=== PATIENT | male | born 1965 | race Caucasian/White ===

== ENCOUNTER 2017-06-08 13:06 | Inpatient (IN) | payer SELFPAY ==
[2017-06-08] MEDS ORDERED: HYDROcodone/Acetaminophen 7.5/325 mg Tablet PO PRN (13:33)
[2017-06-08] MEDS ORDERED: Ondansetron HCl/PF 4 MG/2 ML Vial IVP PRN (13:33)
[2017-06-08] MEDS ORDERED: Albuterol Sulfate 2.5 mg/3 ml Neb NEB PRN (13:42)
[2017-06-08 13:46] VITALS: BMI 22.6
[2017-06-08 14:10] LABS: Hematocrit-ABG 10.2 % (42.0-52.0)
[2017-06-08 14:28] LABS: Actual Bicarbonate (HCO3a) 22.1 mEq/L (22-26); Base Excess (BEa) -1.9 mEq/L (0 (+/-) 2.5); CO2 Tension 34.5 mmHg (35.0-45.0); O2 Tension (PaO2) 69.3 mmHg (80.0-100.0); pH, Arterial 7.42 (7.35-7.45)
[2017-06-08 14:29] LABS: Calcium, Ionized 1.1 mmol/L (1.12-1.30); Hematocrit-ABG 37.7 % (42.0-52.0)
[2017-06-08 14:30] LABS: ALV-art Gradient 144.255 (0-20); Puncture Site RRA
--- NOTE | 2017-06-08 14:38 | HP ---
DATE OF ADMISSION: 06/08/2017 CHIEF COMPLAINT: Shortness of breath. 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 Until 2 weeks ago, he noticed a sudden onset of chest pain in his left chest while he was lifting a heavy drum. During that time, he was noticed that his brother who was diagnosed with strep throat with coughing and he happened to peralta ve some similar symptoms at that time. He did not have any fevers, but he did complain of some weakn ess at that time associated with some cough. So after waiting for 2 weeks for this chronic chest emilia n, patient developed fever and worsening cough with productive sputum. So he went to a nearby ER in [place] where he was initially checked for white count being 23,000. So he was sent home with ora l antibiotics. Patient had returned back and a chest x-ray was done at that time that was today and it showed no evidence of worsening infiltrates from the previous day and associated with air fluid le viki in the left lung suggestive of hydropneumothorax. So at that time, the patient was decided to be transferred to a higher level of care and they called [facility]. The ER physician did s peak to the textile bag sewer, Dr. Brambila, who agreed the patient would need a higher level of care and pos sibly with a chest tube. Patient was seen in the IMCU. He was alert and oriented. He was saturatin g on nasal cannula on 94% on 4 liters. He did note ate. He does complain of chest pain which is 7 o ut of 10 on intensity at this time after pain medication. The pain is located in the left lower ches t around the rib margin and is aggravated more on deep breathing and coughing. The patient had a pre vious history of pneumonia in his right lung. At that time, it was suspicious for tuberculosis, so katherine villanueva had biopsy of the lymph node on the right lung. Patient was also diagnosed with ascending aortic a neurysm in 2014 and it was 4.5 cm at that time, but he never followed up with his primary doctor evita santos that. Otherwise, the patient does complain of having a history of COPD that was diagnosed by h jaswant primary care physician. He is a known smoker and smokes almost one to one and half pack a day. PAST MEDICAL HISTORY: 1. History of COPD. 2. History of ascending aortic aneurysm. PAST SURGICAL HISTORY: The patient had resection of the hilar lymph node in the right lung for suspi cion for tuberculosis, which was negative at that time. FAMILY HISTORY: The patient has significant family history of lung cancer of mother, father, and bro thers, all with lung cancer. SOCIAL HISTORY: The patient is a known smoker, smokes 1 to 1-1/2 pack a day. No history of alcohol, no history of illicit drug use. 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 REVIEW OF SYSTEMS: All 12 systems are reviewed with the patient thoroughly and found to be negative at this time. Systems reviewed are HEENT, CVS, WASTEWATER PROJECT MANAGER, respiratory, GI, , musculoskeletal, skin integ umentary, psychiatric. The following complete review of systems was negative, unless otherwise menti oned in the HPI or below: Constitutional: Weight loss or gain, sense of well-being, ability to conduct usual activities, exerc ise tolerance. Skin/Breast: Rash, itching, changes in hair growth or loss, nail changes, breast lumps, tenderness, swelling, nipple discharge. Eyes: Vision, double vision, tearing, blind spots, pain. ENT/Mouth: Headaches (location, time of onset, duration, precipitating factors), vertigo, lightheade dness, injury. Vision, double vision, tearing, blind spots, pain, nose bleeding, colds, obstruction, discharge, dental difficulties, gingival bleeding, dentures, neck stiffness, pain, tenderness, masses in thyroid or other areas Cardiovascular: Precordial pain, substernal distress, palpitations, syncope, dyspnea on exertion, or thopnea, nocturnal paroxysmal dyspnea, edema, cyanosis, hypertension, heart murmurs, varicosities, ph lebitis, claudication. Respiratory: Pain, shortness of breath, wheezing, stridor, cough, hemoptysis, fever or night sweats Gastrointestinal: Poor appetite, dysphagia, indigestion, abdominal pain, heartburn, eructation, naus ea, vomiting, hematemesis, jaundice, constipation, or diarrhea, abnormal stools (gaby-colored, tarry, bloody, greasy, foul smelling), flatulence, hemorrhoids, recent changes in bowel habits. Genitourinary: Urgency, frequency, dysuria, nocturia, hematuria, polyuria, oliguria, unusual (or lyndsay nge in) color of urine, stones, hesitancy, change in size of stream, dribbling, acute retention or in continence, libido, potency. Musculoskeletal: Pain, swelling, redness or heat of muscles or joints, limitation, of motion, muscul ar weakness, atrophy, cramps. Neurologic/Psychiatric: Convulsions, paralyses, tremor, incoordination, paraesthesias, difficulties with memory of speech, sensory or motor disturbances, or muscular coordination (ataxia, tremor), emot ional problems, anxiety, depression, previous psychiatric care, unusual perceptions, hallucinations. Allergy/Immunologic: Skin rash, anemia, bleeding tendency, polydipsia, polyuria, intolerance to heat or cold. All systems are reviewed and found to be negative except the ones described in HPI. HOME MEDICATIONS: None. ALLERGIES: None. PHYSICAL EXAMINATION: VITAL SIGNS: Blood pressure is 100/60, pulse is 96, respirations 20, saturations 94% on 4 liters. GENERAL: The patient is moderately built and moderately nourished. He does not appears to be in acu te distress at this time. He is alert and oriented. He was seen sitting in the bed at 45 degrees in clination. HEENT: Atraumatic and normocephalic. PERRLA. Extraocular muscles were intact. Oral mucosa is pink and moist. CARDIOVASCULAR: S1, S2 normal. No murmurs, no rubs or gallops. LUNGS: Bilateral air entry was reduced with reduced air entry to the left lung and complete dullness was noted in the lower left lung. Signs of acute respiratory distress were also noted with accessor y muscle use of respiration. ABDOMEN: Soft, nontender, no guarding, no rebound tenderness. Bowel sounds normal. MUSCULOSKELETAL: No calf tenderness. No pedal edema. No joint tenderness, no joint swelling. SKIN: No cyanosis, no erythema, no rash, no pallor. CENTRAL NERVOUS SYSTEM: Cranial nerve examination II-XII intact. No focal deficits were noted. NECK: No thyromegaly. No lymphadenopathy was noted. PSYCHIATRIC: No signs of suicidal ideation. No signs of mitra. LABORATORY DATA: Labs done today; sodium is 129, potassium is 4.7, chloride is 96, bicarbonate is 20 , anion gap is 18, blood sugar is 112, BUN 13, creatinine 0.8, alkaline phosphatase 407, AST was 71, and ALT was 38. IMAGING DATA: Chest x-ray has been read by radiologist at [facility] showing evidence of left luis armando g hydropneumothorax involving 30% of the lung. I have not had a chance to review the x-ray. ASSESSMENT AND PLAN: 1. Severe sepsis. 2. Acute hypoxic respiratory failure. 3. Acute left lung hydropneumothorax involving 30% of the lung. 4. Acute hyponatremia. 5. Thrombocytosis. PLAN: 1. Plan is to start the patient on broad spectrum IV antibiotics at this time with cefepime and levo floxacin. The patient has his brother being diagnosed with strep infection. Most likely the patient could have had a strep throat. We will get blood cultures and also get Streptococcal pneumonia urin e antigen and also Rapid Strep screening. This would streamline antibiotics. 2. Patient has worsening shortness of breath likely from left lung hydropneumothorax. Pulmonary has been consulted. Dr. Brambila would be following with this and possibly patient would be getting chest t ube drainage and would send parapneumonic effusion for culture. We will closely monitor the patient along with Dr. Brambila and we will follow his recommendations. 3. The patient will be continued on high flow oxygen at this time to keep the saturations more than 97%. We will get an ABG to get a basic level of his blood gases. As the patient has a known history of COPD, we will closely monitor for any worsening COPD exacerbation. We will continue the patient on DuoNebs and albuterol nebs as needed. 4. The patient has elevated thrombocytes. Most likely this could be acute phase reactant signs, but patient has a strong family history of lung cancer and this need to be screened. We will closely fo llow up with further imaging as per Pulmonology. 5. The patient has a history of ascending aortic aneurysm with 4.5 cm diameter last imaged in 2014. When patient gets more stable, we will do a CTA to look for the diameter and we will consult Vascula r at that point. 6. We will also get a 2D echo as the patient was complaining of chest pains to rule out any evidence of congestive heart failure or any wall motion abnormality. 7. This patient has hyponatremia likely from sepsis. We will closely monitor. We will continue the patient on 100 mL of normal saline at this time. 8. Deep venous thrombosis prophylaxis. At this time, we will keep him on SCDs until after the patie nt gets chest tube. After this, the patient will be started on Lovenox 40 mg subcu daily for DVT pro phylaxis. I spent 70 minutes on this patient. On this one hour is critical care time. My critical care time w ould be from 01:15 to 01:45.
[2017-06-08 14:44] LABS: Fluid, Triglycerides 43 mg/dL (Not Available); Pleural Fluid, Amylase Less than 30 U/L (Not Available); Pleural Fluid, Glucose Less than 20 mg/dL; Pleural Fluid, LDH 3753 U/L (Not Available); Pleural Fluid, Protein 4.2 g/dL
[2017-06-08 14:50] LABS: Hemoglobin 10.8 g/dL (14.0-18.0); Mean Corpuscular HGB CONC 35.6 g/dL (32.0-36.0); Mean Corpuscular Hemoglobin 36.3 pg (27.0-31.0); Mean Platelet Volume 5.5 fL (7.4-10.4); Platelet Count 1056 thou/uL (130-400); RBC Distribution Width 12.8 % (11.5-14.5); Red Blood Cell (RBC) Count 2.98 mill/uL (4.70-6.10); White Blood Cell (WBC) Count 36.3 thou/uL (4.8-10.8)
[2017-06-08 14:52] LABS: Body Fluid Source THORACENTESIS FLD
[2017-06-08 14:53] LABS: BF Color Yellow; Clarity Cloudy/Turbid (Clear); RBC Background Count 0.005; RBC Count-Automated 104000 /cumm; Tube # EDTA; WBC/NonHematic-Auto 55700 /cumm
[2017-06-08] MEDS: Clindamycin/D5W 600 MG in Premix Bag 1 BAG IVPB SCH (15:05)
[2017-06-08] MEDS: Sodium Chloride 0.9% 1,000 ML IV SCH (15:05)
[2017-06-08] MEDS: HYDROcodone/Acetaminophen 10/325 mg Tablet PO PRN ×2 (15:06→20:24)
[2017-06-08 15:09] LABS: Band 49 % (5-11); Large Platelets SLIGHT; Lymphocytes 4 % (21-51); MDiff Complete? YES; Macrocytosis SLIGHT = 6-15 cells (100X) (0-5/hpf); Metamyelocyte 4 % (0-0); Neutrophil 43 % (42-75); PLT Morphology Comment Appears Increased; Polychromasia SLIGHT = 2-3 cells (100X) (0-2/hpf); Reflex for Review?? YES; Target Cells SLIGHT = 2-5 cells (100X) (0-1/hpf)
--- NOTE | 2017-06-08 15:19 | RAD ---
CHEST 1 VIEW PORTABLE: Date: 06/08/17 HISTORY: 51-year-old male with history of empyema and hydropneumothorax. FINDINGS: There is a moderate size pneumothorax, primarily involving the left apex and upper chest, with some a ir fluid levels in the left base. There is some pleural and parenchymal disease in the left mid lung zone and left lower lobe, evidence for pneumonia. The right lung is clear. Evidence for small hiatal hernia. IMPRESSION: Moderate left-sided pneumothorax with some pleural fluid. Persistent parenchymal disease in the left mid lung zone and left lower lobe. Stable appearing right chest. POS: [facility]
--- NOTE | 2017-06-08 15:23 | CT ---
CHEST CT SCAN WITHOUT IV CONTRAST: Date: 06/08/17 HISTORY: 51-year-old male with history of hydropneumothorax post thoracentesis. FINDINGS: There is a moderate size left-sided pneumothorax, primarily superiorly, with some pleural fluid, incl uding some minimally loculated pleural fluid in the left lung base. Small right-sided pleural effusio n and minimal posterior pleural based parenchymal changes in the right lower lobe. There is some mini mal loculated pleural fluid in the anterior and medial chest. There is evidence for confluent pneumon ia in the lingula and left upper lobe. There is also parenchymal disease in the left lower lobe with what appears to be an associated cavity, irregularly shaped, measuring approximately 2.5 x 3.5 cm. Mo derate pericardial effusion up to 0.7 cm in thickness anteriorly. IMPRESSION: Moderate left pneumothorax with some fluid in the dependent portion of the lower chest. Consolidated parenchymal change in the lingula and portions of the left upper lobe. Confluent parenchymal process in the left lower lobe with an irregular cavity. Evidence for hiatal hernia. Minimal right pleural ef fusion and pleural based parenchymal changes. Small pericardial effusion. Other findings as above. POS: [facility]
[2017-06-08 15:38] LABS: BF Segmented Neutrophils 93 %; Cell Count Non Hematic 5 %; Eosinophils 2 %
[2017-06-08] MEDS ORDERED: Lidocaine 1% (PF) 30 ML VIAL FS SCH (16:00)
--- NOTE | 2017-06-08 16:23 | OP ---
PROCEDURE: Thoracentesis. INDICATIONS: Right-sided pleural effusion. PROCEDURE IN DETAIL: After informed consent, the patient is sitting upright in bed. The left rigger chief ior thorax was cleaned with chlorhexidine. 1% Xylocaine infiltrated into the intercostal space in th e midscapular area and the pleural cavity was entered, and 20 mL of foul-smelling pus was removed. T hereafter, using an 8-Honduran catheter, a total of 650 mL was removed without difficulty. Effusion is clearly purulent. His pH is 6.8. Reordering a CAT scan film sent out for studies including culture . Additionally, CT surgery is consulted for insertion of a chest tube in appropriate intervention.
[2017-06-08 16:25] LABS: Strep pneumo Urine Ag NEGATIVE (NEGATIVE)
[2017-06-08] MEDS ORDERED: Fentanyl 100 MCG/2 ML VIAL SLOW IVP PRN ×2 (16:58)
--- NOTE | 2017-06-08 17:06 | CON ---
DATE OF CONSULTATION: 06/08/2017 HISTORY OF PRESENT ILLNESS: Mr. Bledsoe is a 51-year-old chronically ill gentleman who presented to the [facility] with approximately 2 weeks of not feeling well, cough, fever, and foul-smelling sputum. He was found to have a hydropneumothorax on the left and was transferred here for further care. Dr. Brambila saw him on admission and did a thoracentesis. He pulled 600 mL of some foul smelling fluid from his left chest. CT scan has been performed, which shows ascending aorta measuring 5 cm in maximum diameter. He has a left hydropneumothorax with loculations along the diaphragm. There is an infiltrate with a centrally located cavity, which is ruptured apparently. I have been asked to see him to place a chest tube in for further recommendations for treatment of his empyema. PAST MEDICAL HISTORY: 1. COPD. 2. History of previous alcohol abuse. 3. Ongoing tobacco abuse. 4. Ascending aortic aneurysm history. PAST SURGICAL HISTORY: Lymph node resection on the right for a history suspicion for tuberculosis, which was negative. SOCIAL HISTORY: He continues to smoke approximately a pack to a pack and a half cigarettes a day. 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 REVIEW OF SYSTEMS: Ten point review of systems is performed and is negative except as above. PHYSICAL EXAMINATION: GENERAL: This is a thin jaundiced gentleman, very short of breath sitting upright in bed. VITAL SIGNS: His temperature is 97.8, pulse is 95 and regular, blood pressures 120/65. LUNGS: Have diminished breath sounds throughout and wheezes. HEART: Rhythm is regular. ABDOMEN: Soft and nontender. EXTREMITIES: No edema. SKIN: Jaundiced. LABORATORY DATA: White blood cell count is 36.3 thousand, platelet count is 1056. Chest x-ray and chest CT have been reviewed. ASSESSMENT AND PLAN: 1. Left empyema. Plan is for a left chest tube. 2. Ascending aneurysm is at 5 cm, is inconsequential in this current situation. 3. Jaundice - with ETOH history, he may have cirrhosis. WIll initiate w/u MTDD
[2017-06-08] MEDS: Cefepime 2 GM, Syringe 2.5 ML in Sterile Water 10 ML SLOW IVP SCH (17:14)
--- NOTE | 2017-06-08 17:36 | RAD ---
CHEST ONE VIEW 06/08/17 HISTORY: Chest tube placement. COMPARISON: Radiograph same day. FINDINGS: New thoracostomy tube in the left chest with size decrease in pneumothorax. Layering left effusion. R ight lung relatively clear. IMPRESSION: Satisfactory placement of thoracostomy tube with minimal pneumothorax remaining. POS: [facility]
[2017-06-08] MEDS: Docusate 100 MG CAP PO SCH (20:24)
[2017-06-08] MEDS: Famotidine/PF 20 mg/2ml Vial SLOW IVP SCH (20:25)
[2017-06-08] MEDS ORDERED: Cefepime 2 GM in Sodium Chloride 0.9% 100 ML IVPB SCH (21:00)
[2017-06-08] MEDS ORDERED: FLU VACC QS2017-18 36 mo. & older 0.5 ML SYRINGE IM ONE (21:00)
--- NOTE | 2017-06-08 21:22 | OP ---
DATE OF PROCEDURE: 06/08/2017 PREOPERATIVE DIAGNOSIS: Left empyema. POSTOPERATIVE DIAGNOSIS: Left empyema. PROCEDURE: Left chest tube placement. SURGEON: Isaias Monet M.D. ANESTHESIA: General, 1% lidocaine with epinephrine for local. PROCEDURE IN DETAIL: After consent was obtained, the left chest wall was prepped and draped in usual sterile fashion. Skin, subcutaneous tissue, and pericostal tissue was anesthetized with 1% lidocain e with epinephrine. Skin incision was made and sharp dissection used to enter the chest. Finger swe ep was performed and some adhesions were taken down bluntly. There was extremely foul-smelling gas a nd fluid that emanated from the wound. A 32 Turkmen chest tube was passed posteriorly and secured to the skin with silk suture. Chest tube was placed to suction. Sterile dressings were applied. Follo w up chest x-ray shows good position of the chest tube.
[2017-06-09] MEDS: HYDROcodone/Acetaminophen 10/325 mg Tablet PO PRN ×3 (00:30→13:38)
[2017-06-09] MEDS: Clindamycin/D5W 600 MG in Premix Bag 1 BAG IVPB SCH ×4 (00:31→23:55)
[2017-06-09] MEDS: Sodium Chloride 0.9% 1,000 ML IV SCH ×3 (00:31→18:04)
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
[2017-06-09 05:07] LABS: Mean Corpuscular HGB CONC 32.7 g/dL (32.0-36.0); Mean Corpuscular Hemoglobin 33.3 pg (27.0-31.0); Mean Platelet Volume 5.3 fL (7.4-10.4); Platelet Count 1049 thou/uL (130-400); RBC Distribution Width 12.9 % (11.5-14.5); Red Blood Cell (RBC) Count 3.02 mill/uL (4.70-6.10); White Blood Cell (WBC) Count 34.2 thou/uL (4.8-10.8)
[2017-06-09 05:15] LABS: Anion Gap 12 mmol/L (10-20); BUN (Urea Nitrogen) 13 mg/dL (8.9-20.6); Calc. Creatinine Clearance 115 mL/min (70-130); Calcium 8.4 mg/dL (7.8-10.44); Carbon Dioxide 25 mmol/L (22-29); Chloride 93 mmol/L (98-107); Estimated GFR-MDRD Greater than 90; Glucose 182 mg/dL (70-105); Potassium 4.4 mmol/L (3.5-5.1); Sodium 126 mmol/L (136-145)
[2017-06-09] MEDS: Cefepime 2 GM, Syringe 2.5 ML in Sterile Water 10 ML SLOW IVP SCH ×2 (05:20→17:56)
[2017-06-09 05:27] LABS: Band 31 % (5-11); Lymphocytes 8 % (21-51); MDiff Complete? YES; Macrocytosis SLIGHT = 6-15 cells (100X) (0-5/hpf); Metamyelocyte 3 % (0-0); Monocytes 7 % (0-10); Neutrophil 51 % (42-75); PLT Morphology Comment Appears Increased
[2017-06-09] MEDS: Aspirin 325 MG TAB PO SCH (07:59)
[2017-06-09] MEDS: Docusate 100 MG CAP PO SCH ×2 (07:59→20:56)
[2017-06-09] MEDS: Multivit, Therapeutic 1 TAB PO SCH (07:59)
[2017-06-09] MEDS: Famotidine/PF 20 mg/2ml Vial SLOW IVP SCH ×2 (08:11→20:56)
--- NOTE | 2017-06-09 10:31 | RAD ---
CHEST 1 VIEW: Date: 06/09/17 HISTORY: 51-year-old male with difficulty breathing. Chest tube placement. COMPARISON: 06/08/17. FINDINGS: There is a left chest tube again noted in place with some subcutaneous emphysema. No significant pneu mothorax. Stable appearing pleural and parenchymal opacity changes in the left mid and lower lung zon e. No significant acute process in the right lung. There are some mild increased markings in the righ t base. IMPRESSION: No significant residual left-sided pneumothorax. Stable appearing pleural and parenchymal opacity lyndsay nges in the left mid chest. Evidence for hiatal hernia. Mild increased markings in the right base, po ssibly mild subsegmental atelectasis. No acute process. POS: [facility]
[2017-06-09 10:52] LABS: INR-International Normal Ratio 1.3; PTT 37.3 SEC (22.9-36.1); Prothrombin Time 16.5 SEC (12.0-14.7)
--- NOTE | 2017-06-09 11:01 | PDOC.PN ---
- Subjective Encounter Start Date: 06/09/17 Encounter Start Time: 10:59 Patient seen and examined, chest tube in place, states he feels ok minus the pain in his chest, no other issues. All questions answered. - Objective Resuscitation Status: Resuscitation Status FULL:Full Resuscitation Vital Signs & Weight: Vital Signs (12 hours) Temp Pulse Resp BP Pulse Ox 06/09/17 08:00 97.6 F 91 28 H 94 L 06/09/17 07:31 69 28 H 96 06/09/17 07:13 96.3 F L 84 20 117/74 93 L 06/09/17 03:31 97.8 F 83 22 H 101/69 99 06/08/17 23:39 98.7 F 85 28 H 128/69 100 Weight Weight 136 lb 8 oz I&O: 06/08/17 06/09/17 06/10/17 06:59 06:59 06:59 Intake Total 2680 Output Total 1460 100 Balance 1220 -100 Result Diagrams: 06/09/17 04:42 06/09/17 04:42 Phys Exam - Physical Examination Constitutional: NAD HEENT: PERRLA, oral pharynx no lesions Neck: no nodes, no JVD Respiratory: no wheezing, no rales +Chest tube Cardiovascular: RRR, no significant murmur Gastrointestinal: soft, non-tender Musculoskeletal: no edema, pulses present Neurological: non-focal, normal sensation Lymphatic: no nodes Psychiatric: normal affect, A&O x 3 Skin: no rash, normal turgor Dx/Plan (1) Chest tube in place Code(s): Z97.8 - PRESENCE OF OTHER SPECIFIED DEVICES Status: Acute (2) Smoker Code(s): F17.200 - NICOTINE DEPENDENCE, UNSPECIFIED, UNCOMPLICATED Status: Acute (3) Tobacco abuse Code(s): Z72.0 - TOBACCO USE Status: Acute (4) HTN (hypertension) Code(s): I10 - ESSENTIAL (PRIMARY) HYPERTENSION Status: Acute (5) Hyponatremia Code(s): E87.1 - HYPO-OSMOLALITY AND HYPONATREMIA Status: Acute - Plan * echo pending * fluid restrict for now * chronic history of smoking for 40+ yrs more than 1pack per day, keep chest tube in place * repeat BMP in AM, no lung mass seen on cxr concerning for malignancy * BP stable * pain control * case and plan d/w patient at length, he understands and agrees with this plan
[2017-06-09 11:14] LABS: ALT (SGPT) 46 U/L (8-55); AST (SGOT) 23 U/L (5-34); Albumin 2.7 g/dL (3.5-5.0); Alkaline Phosphatase 255 U/L (40-150); Bilirubin, Direct 0.4 mg/dL (0.1-0.3); Bilirubin, Total 0.6 mg/dL (0.2-1.2); Protein, Total 5.8 g/dL (6.0-8.3)
[2017-06-09] MEDS ORDERED: Cyclobenzaprine 10 MG TAB PO PRN (11:41)
[2017-06-09] MEDS ORDERED: ALPRAZolam 0.25 MG TAB PO PRN (11:43)
--- NOTE | 2017-06-09 14:09 | PRG ---
DATE OF SERVICE: 06/09/2017 SUBJECTIVE: Ladi this morning is complaining of some muscle spasm. PHYSICAL EXAMINATION: VITAL SIGNS: Blood pressure 119/73, sats are 95% on 2 liters, respirations 18, and temperature 98. CHEST: Reveals decreased breath sounds, crackles and rhonchi, left lung. CARDIAC: Sinus tachycardia. ABDOMEN: Soft, no masses. LABORATORY DATA: White count 43806, H and H 10 and 30, platelet count is 104, 51 segs, 31 bands. IN R 1.3. Liver function pending. Sodium 126. IMPRESSION: 1. Empyema, left chest with necrotizing pneumonia. 2. Tobacco abuse. 3. Alcohol abuse. PLAN: Awaiting results of the liver function. Flexeril and Xanax is being initiated. Going for decortication tomorrow. We will follow. One-half hour critical care time.
[2017-06-10 04:23] LABS: Hemoglobin 9.3 g/dL (14.0-18.0); Mean Corpuscular HGB CONC 32.5 g/dL (32.0-36.0); Mean Corpuscular Hemoglobin 32.8 pg (27.0-31.0); Mean Platelet Volume 5.3 fL (7.4-10.4); Platelet Count 1070 thou/uL (130-400); RBC Distribution Width 12.9 % (11.5-14.5); Red Blood Cell (RBC) Count 2.82 mill/uL (4.70-6.10); White Blood Cell (WBC) Count 35.7 thou/uL (4.8-10.8)
[2017-06-10 04:26] LABS: Anion Gap 13 mmol/L (10-20); BUN (Urea Nitrogen) 11 mg/dL (8.9-20.6); Calc. Creatinine Clearance 117 mL/min (70-130); Calcium 8.4 mg/dL (7.8-10.44); Carbon Dioxide 24 mmol/L (22-29); Chloride 97 mmol/L (98-107); Estimated GFR-MDRD Greater than 90; Glucose 162 mg/dL (70-105); Potassium 4.4 mmol/L (3.5-5.1); Sodium 130 mmol/L (136-145)
[2017-06-10 04:35] LABS: Band 36 % (5-11); Lymphocytes 2 % (21-51); MDiff Complete? YES; Monocytes 1 % (0-10); Neutrophil 61 % (42-75); PLT Morphology Comment Appears Increased
[2017-06-10] MEDS: Cefepime 2 GM, Syringe 2.5 ML in Sterile Water 10 ML SLOW IVP SCH ×2 (05:00→16:23)
[2017-06-10] MEDS: Sodium Chloride 0.9% 1,000 ML IV SCH ×2 (05:00→16:24)
[2017-06-10] MEDS: Aspirin 325 MG TAB PO SCH (07:49)
[2017-06-10] MEDS: Multivit, Therapeutic 1 TAB PO SCH (07:49)
[2017-06-10] MEDS: Docusate 100 MG CAP PO SCH ×2 (07:49→20:04)
[2017-06-10] MEDS: Clindamycin/D5W 600 MG in Premix Bag 1 BAG IVPB SCH ×3 (07:54→23:34)
[2017-06-10] MEDS: Famotidine/PF 20 mg/2ml Vial SLOW IVP SCH ×2 (07:56→20:04)
--- NOTE | 2017-06-10 08:22 | RAD ---
CHEST 1 VIEW: HISTORY: Dyspnea. COMPARISON: 06/09/17. FINDINGS: Cardiac silhouette remains magnified by projection and partially obscured by dense left basilar infil trate that is similar in appearance from previous exam. Pulmonary vasculature is upper limits of nor mal. Mediastinum is midline. Left thoracostomy tube remains in place without significant residual p neumothorax. Old right rib fractures are evident. Left chest wall gas is stable. IMPRESSION: Stable posttraumatic appearance of the chest. POS: [facility]
[2017-06-10] MEDS ORDERED: Midazolam HCl 2 mg/2 ml Vial ONE (08:51)
[2017-06-10] MEDS ORDERED: Fentanyl 100 MCG/2 ML VIAL ONE (08:51)
[2017-06-10] MEDS ORDERED: Phenylephrine 10 MG/NS 250 ML 250 ML ONE (08:55)
[2017-06-10] MEDS ORDERED: Bupivacaine/Epinephrine 0.25% 30 ML VIAL ONE (09:03)
--- NOTE | 2017-06-10 10:10 | PRG ---
DATE OF SERVICE: 06/10/2017 SUBJECTIVE: Mr. Golden is awake, alert, and responsive. He is going for decortication. Denies any p ain or discomfort. PHYSICAL EXAMINATION: VITAL SIGNS: 92% sats on 2 liters, temperature 97, blood pressure 130/80. CHEST: Decreased breath sounds. Left lung is unremarkable. CARDIAC: Normal S1, S2, no gallops. ABDOMEN: Soft, no masses. LABORATORY DATA: White count 35,000. Sodium 130. Electrolytes are normal. Liver function is unrem arkable. Albumin is low at 2.7. IMPRESSION: 1. Left-sided empyema probably pneumothorax. 2. Poor dental hygiene. 3. Alcohol abuse. 4. Poor nutritional status. 5. Marked leukocytosis. 6. Necrotizing pneumonia. PLAN: Continue antibiotics as prescribed, clindamycin, Maxipime and steroids. He is going for decor tication. Prolonged antibiotics. We will follow.
--- NOTE | 2017-06-10 11:02 | OP ---
DATE OF PROCEDURE: 06/10/2017 PREOPERATIVE DIAGNOSIS: Left empyema. POSTOPERATIVE DIAGNOSIS: Left empyema. PROCEDURES PERFORMED: 1. Left subclavian 7 Pakistani central line placement. 2. Left thoracotomy with total pulmonary decortication. SURGEON: Isaias Monet M.D. ANESTHESIA: General endotracheal. ESTIMATED BLOOD LOSS: Less than 50 Ml. DRAINS: 32-Pakistani chest tubes x2. FINDINGS: Foul smelling loculated fluid throughout the lower portion of the chest with an area of pu lmonary rupture. PROCEDURE IN DETAIL: After consent was obtained, the patient was brought to operating room and place d in the supine position on the operating room table. Appropriate anesthetic monitor was placed and general endotracheal anesthesia induced. Flexible fiberoptic bronchoscopy was used to confirm endotr acheal tube placement. Left chest wall was prepped and draped in usual sterile fashion. Left subcla vian central line was then placed. The ports were flushed. The line was secured with silk suture an d sterile dressing applied. The patient was placed in right lateral decubitus position. Joints were appropriately padded. SCDs were used. Left chest wall was prepped and draped in usual sterile fash ion. Posterolateral thoracotomy incision was made. Dissection down to the pericostal tissues obtain ed with electrocautery. The fifth interspace was entered. Ribs were spread. Chest was inspected an d there was a large amount of loculated fluid inferiorly and posteriorly in the chest. This was all evacuated. The lung was freed from the chest wall. The parietal and visceral pleura were decorticat ed freeing the lung completely from the diaphragm and parietal pleura. Lung was inflated and filled nicely with minimal pressure. 32-Pakistani chest tubes were placed, one along the diaphragm, one to the apex. These were secured with silk suture. Ribs were reapproximated with #1 Vicryl. Wounds were c opiously irrigated, closed in layers and Dermabond applied to the skin. The patient was awakened, ex tubated, and transferred to the recovery room in stable condition. Needle, sponge, and instrument co unts were all reported correct at the end of the procedure.
[2017-06-10] MEDS ORDERED: SUGAMMADEX SODIUM 500 MG/5 ML VIAL ONE (11:05)
[2017-06-10] MEDS ORDERED: Ondansetron HCl/PF 4 MG/2 ML Vial IVP PRN ×2 (11:26→12:30)
[2017-06-10] MEDS ORDERED: Promethazine HCl 25 MG/ML VIAL IM PRN ×2 (11:26→12:30)
[2017-06-10] MEDS ORDERED: Morphine Sulfate 2 MG/ML SYRINGE SLOW IVP PRN (11:26)
[2017-06-10] MEDS ORDERED: HYDROmorphone 2 MG/ML VIAL SLOW IVP PRN (11:26)
[2017-06-10] MEDS ORDERED: Meperidine HCl/PF 25 MG/ML VIAL SLOW IVP PRN (11:26)
[2017-06-10] MEDS ORDERED: Promethazine HCl 25 MG/ML VIAL SLOW IVP PRN (11:26)
--- NOTE | 2017-06-10 12:24 | RAD ---
SINGLE VIEW CHEST: Date: 06/10/17 COMPARISON: 06/10/17. HISTORY: Status post left thoracotomy. FINDINGS: Single view of the chest shows enlarged but stable cardiomediastinal silhouette. There are left-sided chest tubes. There is persistent opacity in the mid portion of the left thorax. There may be a small pneumothorax adjacent to the superior chest tube. There is a left subclavian central venous catheter curled back on itself with tip in left subclavian region. There may be a small right pleural effusio n. Air is seen in the left chest wall. IMPRESSION: 1. Malpositioned central venous catheter. 2. Persistent opacity in the left thorax. This may represent a mass or infiltrate. POS: [facility]
[2017-06-10] MEDS ORDERED: Ketorolac Tromethamine 30 MG/ML VIAL IVP PRN (12:30)
[2017-06-10] MEDS ORDERED: traMADol HCl 50 MG TAB PO PRN ×2 (12:30)
[2017-06-10] MEDS ORDERED: diphenhydrAMINE 25 MG CAP PO PRN (12:30)
[2017-06-10] MEDS ORDERED: diphenhydrAMINE 50 MG/ML VIAL IM PRN (12:30)
[2017-06-10] MEDS ORDERED: HYDROcodone/Acetaminophen 5/325 mg Tablet PO PRN ×2 (12:30)
[2017-06-10] MEDS ORDERED: Naloxone HCl 0.4 mg/ml Vial IVP PRN (12:30)
[2017-06-10] MEDS ORDERED: Bupivacaine 0.25% 10 ML VIAL EPIDURAL PRN (12:30)
[2017-06-10] MEDS ORDERED: Eucerin (Mineral Oil/Petrolatum,White) 30 gm Jar TOP PRN (12:30)
[2017-06-10] MEDS ORDERED: diphenhydrAMINE 50 MG/ML VIAL IVP PRN (12:30)
[2017-06-10] MEDS ORDERED: Naloxone HCl 0.4 mg/ml Vial IV PRN (12:30)
[2017-06-10] MEDS ORDERED: Promethazine HCl 25 MG SUPP PR PRN (12:30)
[2017-06-10] MEDS ORDERED: Lidocaine 1% PF 5 ML VIAL ONE (14:05)
[2017-06-10] MEDS ORDERED: Glycopyrrolate 0.2 MG/ML 5 ML SYRINGE ONE (14:05)
[2017-06-10] MEDS ORDERED: Propofol 200 MG/20 ML VIAL ONE (14:05)
[2017-06-10] MEDS ORDERED: PHENYLEPHRINE-NS 100 MCG/ML 10 ML SYRINGE ONE (14:05)
[2017-06-10] MEDS ORDERED: Ondansetron HCl/PF 4 MG/2 ML Vial ONE (14:05)
--- NOTE | 2017-06-10 18:22 | PDOC.PN ---
- Subjective Encounter Start Date: 06/10/17 Encounter Start Time: 18:20 Pt seen for followup re: empyema. had decortication earlier today. Denies fevers. cough+. - Objective Resuscitation Status: Resuscitation Status FULL:Full Resuscitation MAR Reviewed: Yes Vital Signs & Weight: Vital Signs (12 hours) Temp Pulse Resp BP Pulse Ox 06/10/17 15:51 88 18 99 06/10/17 15:30 98.0 F 99 20 121/71 93 L 06/10/17 08:00 97.7 F 86 20 95 06/10/17 07:55 92 L 06/10/17 07:53 86 20 92 L 06/10/17 07:14 97.7 F 84 16 136/80 95 Weight Weight 136 lb 8 oz I&O: 06/09/17 06/10/17 06/11/17 06:59 06:59 06:59 Intake Total 2680 1814.5 600 Output Total 1460 920 200 Balance 1220 894.5 400 Result Diagrams: 06/13/17 04:10 06/13/17 04:10 EKG Reviewed by me: Yes (Tele: sinus tachycardia) Phys Exam - Physical Examination Appears frail HEENT: moist MMs strabismus Neck: supple Bibasal crackles S1, S2, tachy, reg Gastrointestinal: soft Neurological: moves all 4 limbs Psychiatric: normal affect Dx/Plan (1) Empyema Code(s): J86.9 - PYOTHORAX WITHOUT FISTULA Status: Acute (2) Thrombocythemia Status: Acute (3) HTN (hypertension) Code(s): I10 - ESSENTIAL (PRIMARY) HYPERTENSION Status: Chronic (4) Tobacco abuse Code(s): Z72.0 - TOBACCO USE Status: Chronic (5) COPD (chronic obstructive pulmonary disease) Status: Chronic - Plan continue antibiotics, out of bed/ambulate, DVT proph w/SCDs * . Continue IV antibiotics as below. s/p decortication and chest tube placement. ? reactive thrombocytosis, monitor platelet counts. Hematology consult if not improving. Review of Systems - Review of Systems Respiratory: Cough, SOB with Excertion Cardiovascular: negative: chest pain, palpitations, orthopnea, paroxysmal nocturnal dyspnea, edema, light headedness - Medications/Allergies Allergies/Adverse Reactions: Allergies Allergy/AdvReac Type Severity Reaction Status Date / Time No Known Drug Allergies Allergy Verified 06/08/17 16:02 Medications: Current Medications Hydrocodone Bitart/Acetaminophen ([place] 5/325) 1 tab PO Q4H PRN PRN Reason: Mild Pain 0-3 Hydrocodone Bitart/Acetaminophen ([place] 5/325) 2 tab PO Q4H PRN PRN Reason: For Moderate Pain 4-6 Albuterol Sulfate (Ventolin) 2.5 mg NEB Q2H PRN PRN Reason: Wheezing Albuterol/Ipratropium (Duoneb) 3 ml NEB [id number] [facility] Last Admin: 06/10/17 15:51 Dose: 3 ml Alprazolam (Xanax) 0.25 mg PO TIDPRN PRN PRN Reason: Anxiety Aspirin (Aspirin) 325 mg PO DAILY [facility] Last Admin: 06/10/17 07:49 Dose: Not Given Bupivacaine HCl (Marcaine) 5 ml EPIDURAL ONE PRN PRN Reason: UNCONTROLLED PAIN Stop: 06/11/17 12:31 Cyclobenzaprine HCl (Flexeril) 10 mg PO TID PRN PRN Reason: Muscle Spasm Last Admin: 06/09/17 12:05 Dose: 10 mg Diphenhydramine HCl (Benadryl) 25 mg PO Q3H PRN PRN Reason: Itching Diphenhydramine HCl (Benadryl) 25 mg IM Q3H PRN PRN Reason: Itching Diphenhydramine HCl (Benadryl) 25 mg IVP Q3H PRN PRN Reason: Itching Docusate Sodium (Colace) 100 mg PO BID [facility] Last Admin: 06/10/17 07:49 Dose: Not Given Famotidine (Pepcid) 20 mg SLOW IVP Q12HR [facility] Last Admin: 06/10/17 07:56 Dose: 20 mg Sodium Chloride (Normal Saline 0.9%) 1,000 mls @ 100 mls/hr IV .Q10H [facility] Last Admin: 06/10/17 16:24 Dose: 1,000 mls Clindamycin Phosphate/Dextrose (600 mg/ Device) 50 mls @ 100 mls/hr IVPB 0800, 1600,2359 [facility] Last Admin: 06/10/17 16:23 Dose: 50 mls Cefepime HCl 2 gm/ Syringe 2.5 (ml/ Sterile Water) 12.5 mls @ 150 mls/hr SLOW IVP 0500,1700 [facility] Last Admin: 06/10/17 16:23 Dose: 12.5 mls Thiamine HCl 200 mg/ Sodium (Chloride) 52 mls @ 100 mls/hr IVPB 1200,2359 [facility] Stop: 06/12/17 00:31 Last Admin: 06/10/17 13:35 Dose: 52 mls Fentanyl Citrate 250 ml/ (Device) 250 mls @ 0 mls/hr EPIDURAL INF [facility] Ketorolac Tromethamine (Toradol) 30 mg IVP Q6H PRN PRN Reason: Moderate Pain (4-6) Stop: 06/13/17 12:31 Methylprednisolone Sodium Succinate (Solu-Medrol) 40 mg IVP BID [facility] Last Admin: 06/10/17 07:56 Dose: 40 mg Mineral Oil/White Petrolatum (Eucerin Cream) 0 gm TOP PRN PRN PRN Reason: Itching Multivitamins (Theragran) 1 tab PO DAILY [facility] Last Admin: 06/10/17 07:49 Dose: Not Given Naloxone HCl (Narcan) 0.2 mg IV Q5MIN PRN PRN Reason: RR <=8 OR OBTUNDED/UNAROUSABLE Naloxone HCl (Narcan) 0.1 mg IVP Q15MIN PRN PRN Reason: URINARY RETENTION Ondansetron HCl (Zofran) 4 mg IVP Q6H PRN PRN Reason: Nausea/Vomiting Ondansetron HCl (Zofran) 4 mg IVP Q6H PRN PRN Reason: Nausea/Vomiting Promethazine HCl (Phenergan) 12.5 mg IM Q4H PRN PRN Reason: Nausea Promethazine HCl (Phenergan Suppository) 25 mg ME Q4H PRN PRN Reason: Nausea/Vomiting Tramadol HCl (Ultram) 50 mg PO Q6H PRN PRN Reason: Mild Pain 1-3 Tramadol HCl (Ultram) 100 mg PO Q6H PRN PRN Reason: Moderate Pain 4-6 Zolpidem Tartrate (Ambien) 5 mg PO HSPRN PRN PRN Reason: Insomnia
[2017-06-10] MEDS: Zolpidem Tartrate 5 MG TAB PO PRN (21:20)
[2017-06-11] MEDS: Sodium Chloride 0.9% 1,000 ML IV SCH ×2 (02:00→15:01)
[2017-06-11] MEDS: Cefepime 2 GM, Syringe 2.5 ML in Sterile Water 10 ML SLOW IVP SCH ×2 (05:00→17:38)
[2017-06-11 05:57] LABS: Anion Gap 11 mmol/L (10-20); BUN (Urea Nitrogen) 11 mg/dL (8.9-20.6); Calc. Creatinine Clearance 124 mL/min (70-130); Calcium 7.7 mg/dL (7.8-10.44); Carbon Dioxide 25 mmol/L (22-29); Chloride 99 mmol/L (98-107); Estimated GFR-MDRD Greater than 90; Glucose 123 mg/dL (70-105); Potassium 4.6 mmol/L (3.5-5.1); Sodium 130 mmol/L (136-145)
[2017-06-11 06:10] LABS: Acanthocytes SLIGHT = 1-5 cells (100X) (None Seen); Anisocytosis SLIGHT = 6-15 cells (100X) (0-5/hpf); Band 6 % (5-11); Hemoglobin 9.2 g/dL (14.0-18.0); Lymphocytes 8 % (21-51); MDiff Complete? YES; Macrocytosis SLIGHT = 6-15 cells (100X) (0-5/hpf); Mean Corpuscular HGB CONC 33.2 g/dL (32.0-36.0); Mean Corpuscular Hemoglobin 33.5 pg (27.0-31.0); Mean Platelet Volume 5.5 fL (7.4-10.4); Monocytes 5 % (0-10); Neutrophil 81 % (42-75); PLT Morphology Comment Appears Increased; Platelet Count 1010 thou/uL (130-400); RBC Distribution Width 13.2 % (11.5-14.5); Red Blood Cell (RBC) Count 2.74 mill/uL (4.70-6.10); Small Platelets MARKED; White Blood Cell (WBC) Count 23.4 thou/uL (4.8-10.8)
[2017-06-11] MEDS: Clindamycin/D5W 600 MG in Premix Bag 1 BAG IVPB SCH ×2 (09:24→17:33)
[2017-06-11] MEDS: Docusate 100 MG CAP PO SCH ×2 (09:25→21:14)
[2017-06-11] MEDS: Aspirin 325 MG TAB PO SCH (09:25)
[2017-06-11] MEDS: Famotidine/PF 20 mg/2ml Vial SLOW IVP SCH ×2 (09:26→21:15)
[2017-06-11] MEDS: Multivit, Therapeutic 1 TAB PO SCH (09:26)
--- NOTE | 2017-06-11 09:34 | RAD ---
CHEST ONE VIEW: History: Chest pain. Intubated. Follow up. Comparison: 06-10-17 FINDINGS: Cardiac silhouette is magnified by projection. Pulmonary vasculature remains enlarged with patchy are as of parenchymal opacity, similar in appearance to the prior study. Small amount of right pleural fl uid remains. Left thoracostomy tubes are unchanged in position. Left subclavian central venous cathet er remains coiled over the central aspect of the left brachiocephalic vein. Left chest wall gas is si milar in appearance to the prior study. Old right rib fractures are apparent. IMPRESSION: Bilateral airspace disease, right pleural fluid, and other findings are stable. POS: [facility]
--- NOTE | 2017-06-11 12:01 | PRG ---
DATE OF SERVICE: 06/11/2017 This morning he is better, less shortness of breath, less cough. He underwent decortication yesterday. X-ray looks much improved, though still appears to have some n ecrotizing pneumonia. Events noted as per Dr. Monet. All cultures so far are negative. It is more than likely this is an anaerobic infection, probably St reptococcus. It seems sensitive to pretty much all the antibiotics. PHYSICAL EXAMINATION: VITAL SIGNS: Blood pressure 107/70, sats are 92, temperature 97. CHEST: Chest revealed rhonchi and crackles bilaterally. CARDIAC: Normal S1, S2. LABORATORY DATA: White count 22,000, H&H 9 and 26, platelet count is normal. Sodium 130. IMPRESSION: 1. Extensive necrotizing pneumonia with associated probable pneumothorax. 2. Severe deconditioning. 3. Poor dental hygiene. PLAN: Continue supportive care. He can be transferred to the surgical floor. . I will follow.
--- NOTE | 2017-06-11 13:11 | PDOC.PN ---
- Subjective Encounter Start Date: 06/11/17 Encounter Start Time: 10:20 Pt seen for followup re: empyema. Feels better, slept on and off. - Objective Resuscitation Status: Resuscitation Status FULL:Full Resuscitation Vital Signs & Weight: Vital Signs (12 hours) Temp Pulse Resp BP BP Pulse Ox 06/11/17 12:00 97.6 F 95 20 136/77 92 L 06/11/17 11:46 84 16 06/11/17 09:05 72 16 95 06/11/17 08:00 97.2 F L 76 24 H 107/70 92 L 06/11/17 07:58 97.6 F 90 18 98 06/11/17 04:00 97.6 F 90 18 125/69 91 L 06/11/17 01:53 94 L Weight Weight 132 lb 6.4 oz I&O: 06/10/17 06/11/17 06/12/17 06:59 06:59 06:59 Intake Total 1814.5 2014.5 Output Total 920 1470 540 Balance 894.5 544.5 -540 Result Diagrams: 06/11/17 04:50 06/11/17 04:50 Phys Exam - Physical Examination Constitutional: NAD HEENT: moist MMs Neck: supple Jeramie crackles Cardiovascular: RRR Gastrointestinal: soft Neurological: moves all 4 limbs Psychiatric: normal affect Skin: no rash Dx/Plan (1) Empyema Code(s): J86.9 - PYOTHORAX WITHOUT FISTULA Status: Acute (2) Thrombocythemia Status: Acute (3) HTN (hypertension) Code(s): I10 - ESSENTIAL (PRIMARY) HYPERTENSION Status: Chronic (4) Tobacco abuse Code(s): Z72.0 - TOBACCO USE Status: Chronic (5) COPD (chronic obstructive pulmonary disease) Status: Chronic - Plan continue antibiotics, PT/OT, out of bed/ambulate, DVT proph w/SCDs * . Continue IV antibiotics as below. Follow cultures. Ambulate patient. Review of Systems - Review of Systems Constitutional: negative: fever, chills, sweats, weakness, malaise Respiratory: Cough, Sputum. negative: Dry, Shortness of Breath, Hemoptysis, SOB with Excertion, Pleuritic Pain, Wheezing - Medications/Allergies Allergies/Adverse Reactions: Allergies Allergy/AdvReac Type Severity Reaction Status Date / Time No Known Drug Allergies Allergy Verified 06/08/17 16:02 Medications: Current Medications Hydrocodone Bitart/Acetaminophen ([place] 5/325) 1 tab PO Q4H PRN PRN Reason: Mild Pain 0-3 Hydrocodone Bitart/Acetaminophen ([place] 5/325) 2 tab PO Q4H PRN PRN Reason: For Moderate Pain 4-6 Albuterol Sulfate (Ventolin) 2.5 mg NEB Q2H PRN PRN Reason: Wheezing Albuterol/Ipratropium (Duoneb) 3 ml NEB [id number] [facility] Last Admin: 06/11/17 11:46 Dose: 3 ml Alprazolam (Xanax) 0.25 mg PO TIDPRN PRN PRN Reason: Anxiety Amoxicillin/Clavulanate Potassium (Augmentin) 875 mg PO Q12HR [facility] Stop: 06/25/17 21:01 Aspirin (Aspirin) 325 mg PO DAILY [facility] Last Admin: 06/11/17 09:25 Dose: 325 mg Cyclobenzaprine HCl (Flexeril) 10 mg PO TID PRN PRN Reason: Muscle Spasm Last Admin: 06/09/17 12:05 Dose: 10 mg Diphenhydramine HCl (Benadryl) 25 mg PO Q3H PRN PRN Reason: Itching Diphenhydramine HCl (Benadryl) 25 mg IM Q3H PRN PRN Reason: Itching Diphenhydramine HCl (Benadryl) 25 mg IVP Q3H PRN PRN Reason: Itching Docusate Sodium (Colace) 100 mg PO BID [facility] Last Admin: 06/11/17 09:25 Dose: 100 mg Famotidine (Pepcid) 20 mg SLOW IVP Q12HR [facility] Last Admin: 06/11/17 09:26 Dose: 20 mg Sodium Chloride (Normal Saline 0.9%) 1,000 mls @ 100 mls/hr IV .Q10H [facility] Last Admin: 06/11/17 02:00 Dose: 1,000 mls Clindamycin Phosphate/Dextrose (600 mg/ Device) 50 mls @ 100 mls/hr IVPB 0800, 1600,2359 [facility] Last Admin: 06/11/17 09:24 Dose: 50 mls Cefepime HCl 2 gm/ Syringe 2.5 (ml/ Sterile Water) 12.5 mls @ 150 mls/hr SLOW IVP 0500,1700 [facility] Last Admin: 06/11/17 05:00 Dose: 12.5 mls Thiamine HCl 200 mg/ Sodium (Chloride) 52 mls @ 100 mls/hr IVPB 1200,2359 [facility] Stop: 06/12/17 00:31 Last Admin: 06/10/17 23:33 Dose: 52 mls Fentanyl Citrate 250 ml/ (Device) 250 mls @ 0 mls/hr EPIDURAL INF [facility] Ketorolac Tromethamine (Toradol) 30 mg IVP Q6H PRN PRN Reason: Moderate Pain (4-6) Stop: 06/13/17 12:31 Methylprednisolone Sodium Succinate (Solu-Medrol) 40 mg IVP BID [facility] Last Admin: 06/11/17 09:26 Dose: 40 mg Mineral Oil/White Petrolatum (Eucerin Cream) 0 gm TOP PRN PRN PRN Reason: Itching Multivitamins (Theragran) 1 tab PO DAILY [facility] Last Admin: 06/11/17 09:26 Dose: 1 tab Naloxone HCl (Narcan) 0.2 mg IV Q5MIN PRN PRN Reason: RR <=8 OR OBTUNDED/UNAROUSABLE Naloxone HCl (Narcan) 0.1 mg IVP Q15MIN PRN PRN Reason: URINARY RETENTION Ondansetron HCl (Zofran) 4 mg IVP Q6H PRN PRN Reason: Nausea/Vomiting Ondansetron HCl (Zofran) 4 mg IVP Q6H PRN PRN Reason: Nausea/Vomiting Promethazine HCl (Phenergan) 12.5 mg IM Q4H PRN PRN Reason: Nausea Promethazine HCl (Phenergan Suppository) 25 mg NE Q4H PRN PRN Reason: Nausea/Vomiting Tramadol HCl (Ultram) 50 mg PO Q6H PRN PRN Reason: Mild Pain 1-3 Last Admin: 06/10/17 20:03 Dose: 50 mg Tramadol HCl (Ultram) 100 mg PO Q6H PRN PRN Reason: Moderate Pain 4-6 Zolpidem Tartrate (Ambien) 5 mg PO HSPRN PRN PRN Reason: Insomnia Last Admin: 06/10/17 21:20 Dose: 5 mg
[2017-06-11] MEDS: Fentanyl/Bupivacaine 250 ML in Premix Bag 1 BAG EPIDURAL SCH (20:03)
[2017-06-11] MEDS: Amoxicillin/Potassium Clav 875 MG TAB PO SCH (21:14)
[2017-06-11] MEDS: Zolpidem Tartrate 5 MG TAB PO PRN (21:15)
[2017-06-12] MEDS: Clindamycin/D5W 600 MG in Premix Bag 1 BAG IVPB SCH ×3 (00:56→15:47)
[2017-06-12] MEDS: Sodium Chloride 0.9% 1,000 ML IV SCH ×3 (02:55→17:28)
[2017-06-12] MEDS: Cefepime 2 GM, Syringe 2.5 ML in Sterile Water 10 ML SLOW IVP SCH ×2 (06:21→17:42)
[2017-06-12] MEDS: Aspirin 325 MG TAB PO SCH (08:17)
[2017-06-12] MEDS: Multivit, Therapeutic 1 TAB PO SCH (08:17)
[2017-06-12] MEDS: Amoxicillin/Potassium Clav 875 MG TAB PO SCH ×2 (08:17→21:17)
[2017-06-12] MEDS: Famotidine/PF 20 mg/2ml Vial SLOW IVP SCH ×2 (08:17→21:17)
[2017-06-12] MEDS: Docusate 100 MG CAP PO SCH ×3 (08:17→21:17)
--- NOTE | 2017-06-12 11:02 | RAD ---
SINGLE VIEW OF THE CHEST: Comparison: 06-11-17 History: Ventilated patient with respiratory failure. FINDINGS: Single view of the chest shows normal sized cardiomediastinal silhouette. The central venous catheter is still coiled back on itself. Left sided chest tubes are again seen. There are small bilateral ple ural effusions. Multifocal infiltrates are again seen in the left lung, unchanged. Air is seen in the left chest wall. IMPRESSION: Stable exam. POS: [facility]
--- NOTE | 2017-06-12 12:09 | PRG ---
DATE OF SERVICE: 06/12/2017 He is doing better, less shortness of breath, less cough. He remains afebrile. Augmentin, clindamycin and Maxipime on board. PHYSICAL EXAMINATION: VITAL SIGNS: Blood pressure 140/85, sats are 96 on 3 liters, temperature 97. CHEST: Chest reveals decreased breath sounds without any wheezing. CARDIAC: Normal S1, S2. ABDOMEN: Soft, no masses. IMPRESSION: 1. Status post decortication and left probably pneumothorax. 2. Empyema. PLAN: Probably continue Maxipime, clindamycin until the chest tube is removed. X-ray in the morning . I will follow. PT.
--- NOTE | 2017-06-12 16:14 | PDOC.PN ---
- Subjective Encounter Start Date: 06/12/17 Encounter Start Time: 08:00 Pt seen for followup re: empyema. says he feels slightly better. no complaints today. - Objective Resuscitation Status: Resuscitation Status FULL:Full Resuscitation MAR Reviewed: Yes Vital Signs & Weight: Vital Signs (12 hours) Temp Pulse Resp BP Pulse Ox 06/12/17 11:35 97.7 F 71 16 157/88 H 97 06/12/17 10:48 79 16 06/12/17 08:00 97.8 F 82 16 06/12/17 07:30 97.8 F 82 16 148/85 H 96 06/12/17 06:55 75 16 95 Weight Weight 5.298 oz I&O: 06/11/17 06/12/17 06/13/17 06:59 06:59 06:59 Intake Total 2014.5 2350 Output Total 1470 1690 Balance 544.5 660 Result Diagrams: 06/11/17 04:50 06/11/17 04:50 EKG Reviewed by me: Yes Phys Exam - Physical Examination Constitutional: NAD HEENT: moist MMs Neck: supple Jeramie crackles, L chest tube Cardiovascular: RRR Gastrointestinal: soft Neurological: moves all 4 limbs Psychiatric: normal affect Dx/Plan (1) Empyema Code(s): J86.9 - PYOTHORAX WITHOUT FISTULA Status: Acute (2) Thrombocythemia Status: Acute (3) HTN (hypertension) Code(s): I10 - ESSENTIAL (PRIMARY) HYPERTENSION Status: Chronic (4) Tobacco abuse Code(s): Z72.0 - TOBACCO USE Status: Chronic (5) COPD (chronic obstructive pulmonary disease) Status: Chronic - Plan * . Continue antibiotics as below, await cultures. Ambulate patient. Check AM labs. Review of Systems - Review of Systems Constitutional: negative: fever, chills, sweats, weakness, malaise Respiratory: Cough, Sputum. negative: Dry, Shortness of Breath, Hemoptysis, SOB with Excertion, Pleuritic Pain, Wheezing - Medications/Allergies Allergies/Adverse Reactions: Allergies Allergy/AdvReac Type Severity Reaction Status Date / Time No Known Drug Allergies Allergy Verified 06/08/17 16:02 Medications: Current Medications Hydrocodone Bitart/Acetaminophen ([place] 5/325) 1 tab PO Q4H PRN PRN Reason: Mild Pain 0-3 Hydrocodone Bitart/Acetaminophen ([place] 5/325) 2 tab PO Q4H PRN PRN Reason: For Moderate Pain 4-6 Albuterol Sulfate (Ventolin) 2.5 mg NEB Q2H PRN PRN Reason: Wheezing Albuterol/Ipratropium (Duoneb) 3 ml NEB [id number] [facility] Last Admin: 06/12/17 14:09 Dose: 3 ml Alprazolam (Xanax) 0.25 mg PO TIDPRN PRN PRN Reason: Anxiety Amoxicillin/Clavulanate Potassium (Augmentin) 875 mg PO Q12HR [facility] Stop: 06/25/17 21:01 Last Admin: 06/12/17 08:17 Dose: 875 mg Aspirin (Aspirin) 325 mg PO DAILY [facility] Last Admin: 06/12/17 08:17 Dose: 325 mg Cyclobenzaprine HCl (Flexeril) 10 mg PO TID PRN PRN Reason: Muscle Spasm Last Admin: 06/09/17 12:05 Dose: 10 mg Diphenhydramine HCl (Benadryl) 25 mg PO Q3H PRN PRN Reason: Itching Diphenhydramine HCl (Benadryl) 25 mg IM Q3H PRN PRN Reason: Itching Diphenhydramine HCl (Benadryl) 25 mg IVP Q3H PRN PRN Reason: Itching Docusate Sodium (Colace) 100 mg PO BID [facility] Last Admin: 06/12/17 08:19 Dose: 100 mg Famotidine (Pepcid) 20 mg SLOW IVP Q12HR [facility] Last Admin: 06/12/17 08:17 Dose: 20 mg Sodium Chloride (Normal Saline 0.9%) 1,000 mls @ 100 mls/hr IV .Q10H [facility] Last Admin: 06/12/17 08:18 Dose: Not Given Clindamycin Phosphate/Dextrose (600 mg/ Device) 50 mls @ 100 mls/hr IVPB 0800, 1600,2359 [facility] Last Admin: 06/12/17 15:47 Dose: 50 mls Cefepime HCl 2 gm/ Syringe 2.5 (ml/ Sterile Water) 12.5 mls @ 150 mls/hr SLOW IVP 0500,1700 [facility] Last Admin: 06/12/17 06:21 Dose: 12.5 mls Fentanyl Citrate 250 ml/ (Device) 250 mls @ 0 mls/hr EPIDURAL INF [facility] Last Admin: 06/11/17 20:03 Dose: 250 mls Ketorolac Tromethamine (Toradol) 30 mg IVP Q6H PRN PRN Reason: Moderate Pain (4-6) Stop: 06/13/17 12:31 Mineral Oil/White Petrolatum (Eucerin Cream) 0 gm TOP PRN PRN PRN Reason: Itching Multivitamins (Theragran) 1 tab PO DAILY [facility] Last Admin: 06/12/17 08:17 Dose: 1 tab Naloxone HCl (Narcan) 0.2 mg IV Q5MIN PRN PRN Reason: RR <=8 OR OBTUNDED/UNAROUSABLE Naloxone HCl (Narcan) 0.1 mg IVP Q15MIN PRN PRN Reason: URINARY RETENTION Ondansetron HCl (Zofran) 4 mg IVP Q6H PRN PRN Reason: Nausea/Vomiting Ondansetron HCl (Zofran) 4 mg IVP Q6H PRN PRN Reason: Nausea/Vomiting Prednisone (Prednisone) 20 mg PO [facility] Promethazine HCl (Phenergan) 12.5 mg IM Q4H PRN PRN Reason: Nausea Promethazine HCl (Phenergan Suppository) 25 mg HI Q4H PRN PRN Reason: Nausea/Vomiting Tramadol HCl (Ultram) 50 mg PO Q6H PRN PRN Reason: Mild Pain 1-3 Last Admin: 06/10/17 20:03 Dose: 50 mg Tramadol HCl (Ultram) 100 mg PO Q6H PRN PRN Reason: Moderate Pain 4-6 Zolpidem Tartrate (Ambien) 5 mg PO HSPRN PRN PRN Reason: Insomnia Last Admin: 06/11/17 21:15 Dose: 5 mg
[2017-06-12] MEDS: Zolpidem Tartrate 5 MG TAB PO PRN (21:17)
[2017-06-13] MEDS: Clindamycin/D5W 600 MG in Premix Bag 1 BAG IVPB SCH ×3 (00:55→15:38)
[2017-06-13] MEDS: Sodium Chloride 0.9% 1,000 ML IV SCH ×2 (01:03→11:27)
[2017-06-13] MEDS: Fentanyl/Bupivacaine 250 ML in Premix Bag 1 BAG EPIDURAL SCH (03:52)
[2017-06-13] MEDS: Cefepime 2 GM, Syringe 2.5 ML in Sterile Water 10 ML SLOW IVP SCH (05:27)
[2017-06-13 05:31] LABS: #Basophils 0.1 thou/uL (0.0-0.2); #Eosinphils 0.2 thou/uL (0.0-0.7); #Lymphocytes 2.5 thou/uL (1.20-3.40); #Monocytes 1.2 thou/uL (0.11-0.59); #Neutrophils 14.1 thou/uL (1.40-6.50); %Basophils 0.3 % (0.0-1.0); %Eosinophils 1.2 % (0.0-10.0); %Lymphocytes 14.1 % (21.0-51.0); %Monocytes 6.5 % (0.0-10.0); Hemoglobin 9.8 g/dL (14.0-18.0); Mean Corpuscular HGB CONC 32.7 g/dL (32.0-36.0); Mean Platelet Volume 5.4 fL (7.4-10.4); Platelet Count 1078 thou/uL (130-400); RBC Distribution Width 13.5 % (11.5-14.5); Red Blood Cell (RBC) Count 2.96 mill/uL (4.70-6.10)
[2017-06-13 05:42] LABS: Anion Gap 9 mmol/L (10-20); BUN (Urea Nitrogen) 9 mg/dL (8.9-20.6); Calc. Creatinine Clearance 155 mL/min (70-130); Calcium 7.9 mg/dL (7.8-10.44); Carbon Dioxide 29 mmol/L (22-29); Chloride 97 mmol/L (98-107); Estimated GFR-MDRD Greater than 90; Glucose 70 mg/dL (70-105); Potassium 4.3 mmol/L (3.5-5.1); Sodium 131 mmol/L (136-145)
--- NOTE | 2017-06-13 07:46 | RAD ---
CHEST 1 VIEW: Date: 06/13/17 HISTORY: Ventilated patient. COMPARISON: Chest 1 view from prior day. FINDINGS: Thoracostomy tube is in place with tip at the apex. The central venous catheter is coiled upon itself with tip projecting over the left subclavian vein. The apex of the kinking is at the brachiocephalic confluence. Left pneumatocele is similar. Air space opacities in the lungs are similar, as well as small effusion s. There is kinking of the left basilar thoracostomy tube. There is a left lateral apical pleural candy e with the pleural space filled with fluid. IMPRESSION: No significant change in radiographic appearance of the chest. POS: [facility]
[2017-06-13] MEDS: predniSONE 20 MG TAB PO SCH (08:38)
[2017-06-13] MEDS: Famotidine/PF 20 mg/2ml Vial SLOW IVP SCH ×2 (08:38→21:48)
[2017-06-13] MEDS: Docusate 100 MG CAP PO SCH ×2 (08:38→21:48)
[2017-06-13] MEDS: Aspirin 325 MG TAB PO SCH (08:38)
[2017-06-13] MEDS: Amoxicillin/Potassium Clav 875 MG TAB PO SCH ×2 (08:38→21:48)
[2017-06-13] MEDS: Multivit, Therapeutic 1 TAB PO SCH (08:38)
--- NOTE | 2017-06-13 09:43 | PRG ---
DATE OF SERVICE: 06/13/2017 X-ray shows much improvement. There still appears to be some left lower lung cavitary infiltrates. CT is doing much improved. He denies any pain or shortness of breath. PHYSICAL EXAMINATION: VITAL SIGNS: Sats are 92 on room air, temperature 97, blood pressure 96/76. CHEST: Chest revealed decreased breath sounds without any wheezing. CARDIAC: Normal S1-S2. ABDOMEN: Soft. No masses. LABORATORY: White count 18,000, H&H 9 and 28, platelet count is elevated. IMPRESSION: Necrotizing pneumonia with probable pneumothorax. PLAN: Continue present treatment. Hopefully, once the CT is removed he can be discharged home with prolonged antibiotics, a total of at least 3 weeks. I will follow.
--- NOTE | 2017-06-13 13:49 | PDOC.PN ---
- Subjective Encounter Start Date: 06/13/17 Encounter Start Time: 08:00 Pt seen for followup re: pneumonia. Cough+, no sputum. No fevers. - Objective Resuscitation Status: Resuscitation Status FULL:Full Resuscitation Vital Signs & Weight: Vital Signs (12 hours) Temp Pulse Resp BP Pulse Ox 06/13/17 11:45 97.9 F 91 16 120/71 93 L 06/13/17 10:50 80 20 06/13/17 08:00 97.6 F 76 16 92 L 06/13/17 07:40 97.6 F 76 16 136/79 92 L 06/13/17 07:15 97 06/13/17 07:12 73 20 97 06/13/17 04:00 97.6 F 80 18 151/77 H 92 L Weight Weight 154 lb 6.4 oz I&O: 06/12/17 06/13/17 06/14/17 06:59 06:59 06:59 Intake Total 2350 2000 Output Total 1845 2285 Balance 505 -285 Result Diagrams: 06/13/17 04:10 06/13/17 04:10 Phys Exam - Physical Examination Constitutional: NAD HEENT: moist MMs Neck: supple Respiratory: clear to auscultation bilateral chest tube+ Cardiovascular: RRR Gastrointestinal: soft Neurological: moves all 4 limbs Psychiatric: normal affect Dx/Plan (1) Pneumonia Code(s): J18.9 - PNEUMONIA, UNSPECIFIED ORGANISM Status: Acute (2) Empyema Code(s): J86.9 - PYOTHORAX WITHOUT FISTULA Status: Acute (3) Thrombocythemia Status: Acute (4) HTN (hypertension) Code(s): I10 - ESSENTIAL (PRIMARY) HYPERTENSION Status: Chronic (5) Tobacco abuse Code(s): Z72.0 - TOBACCO USE Status: Chronic (6) COPD (chronic obstructive pulmonary disease) Status: Chronic - Plan continue antibiotics, PT/OT, out of bed/ambulate * . Continue antibiotics. Await chest tube removal. Ambulate patient. Review of Systems - Review of Systems Constitutional: negative: fever, chills, sweats, weakness, malaise Respiratory: Cough, Dry Cardiovascular: negative: chest pain, palpitations, light headedness - Medications/Allergies Allergies/Adverse Reactions: Allergies Allergy/AdvReac Type Severity Reaction Status Date / Time No Known Drug Allergies Allergy Verified 06/08/17 16:02 Medications: Current Medications Hydrocodone Bitart/Acetaminophen ([place] 5/325) 1 tab PO Q4H PRN PRN Reason: Mild Pain 0-3 Hydrocodone Bitart/Acetaminophen ([place] 5/325) 2 tab PO Q4H PRN PRN Reason: For Moderate Pain 4-6 Albuterol Sulfate (Ventolin) 2.5 mg NEB Q2H PRN PRN Reason: Wheezing Albuterol/Ipratropium (Duoneb) 3 ml NEB [id number] [facility] Last Admin: 06/13/17 10:50 Dose: 3 ml Alprazolam (Xanax) 0.25 mg PO TIDPRN PRN PRN Reason: Anxiety Amoxicillin/Clavulanate Potassium (Augmentin) 875 mg PO Q12HR [facility] Stop: 06/25/17 21:01 Last Admin: 06/13/17 08:38 Dose: 875 mg Aspirin (Aspirin) 325 mg PO DAILY [facility] Last Admin: 06/13/17 08:38 Dose: 325 mg Cyclobenzaprine HCl (Flexeril) 10 mg PO TID PRN PRN Reason: Muscle Spasm Last Admin: 06/09/17 12:05 Dose: 10 mg Diphenhydramine HCl (Benadryl) 25 mg PO Q3H PRN PRN Reason: Itching Diphenhydramine HCl (Benadryl) 25 mg IM Q3H PRN PRN Reason: Itching Diphenhydramine HCl (Benadryl) 25 mg IVP Q3H PRN PRN Reason: Itching Docusate Sodium (Colace) 100 mg PO BID [facility] Last Admin: 06/13/17 08:38 Dose: 100 mg Famotidine (Pepcid) 20 mg SLOW IVP Q12HR [facility] Last Admin: 06/13/17 08:38 Dose: 20 mg Sodium Chloride (Normal Saline 0.9%) 1,000 mls @ 100 mls/hr IV .Q10H [facility] Last Admin: 06/13/17 11:27 Dose: 1,000 mls Clindamycin Phosphate/Dextrose (600 mg/ Device) 50 mls @ 100 mls/hr IVPB 0800, 1600,2359 [facility] Last Admin: 06/13/17 08:38 Dose: 50 mls Fentanyl Citrate 250 ml/ (Device) 250 mls @ 0 mls/hr EPIDURAL INF [facility] Last Admin: 06/13/17 03:52 Dose: 250 mls Mineral Oil/White Petrolatum (Eucerin Cream) 0 gm TOP PRN PRN PRN Reason: Itching Multivitamins (Theragran) 1 tab PO DAILY [facility] Last Admin: 06/13/17 08:38 Dose: 1 tab Naloxone HCl (Narcan) 0.2 mg IV Q5MIN PRN PRN Reason: RR <=8 OR OBTUNDED/UNAROUSABLE Naloxone HCl (Narcan) 0.1 mg IVP Q15MIN PRN PRN Reason: URINARY RETENTION Ondansetron HCl (Zofran) 4 mg IVP Q6H PRN PRN Reason: Nausea/Vomiting Ondansetron HCl (Zofran) 4 mg IVP Q6H PRN PRN Reason: Nausea/Vomiting Prednisone (Prednisone) 20 mg PO QA[facility] Last Admin: 06/13/17 08:38 Dose: 20 mg Promethazine HCl (Phenergan) 12.5 mg IM Q4H PRN PRN Reason: Nausea Promethazine HCl (Phenergan Suppository) 25 mg ND Q4H PRN PRN Reason: Nausea/Vomiting Tramadol HCl (Ultram) 50 mg PO Q6H PRN PRN Reason: Mild Pain 1-3 Last Admin: 06/10/17 20:03 Dose: 50 mg Tramadol HCl (Ultram) 100 mg PO Q6H PRN PRN Reason: Moderate Pain 4-6 Zolpidem Tartrate (Ambien) 5 mg PO HSPRN PRN PRN Reason: Insomnia Last Admin: 06/12/17 21:17 Dose: 5 mg
[2017-06-13] MEDS: Zolpidem Tartrate 5 MG TAB PO PRN (21:48)
[2017-06-14] MEDS: Sodium Chloride 0.9% 1,000 ML IV SCH (00:08)
[2017-06-14] MEDS: Clindamycin/D5W 600 MG in Premix Bag 1 BAG IVPB SCH ×2 (00:09→07:48)
[2017-06-14] MEDS ORDERED: Sodium Chloride 0.9% 1,000 ML IV SCH (05:45)
[2017-06-14 05:55] LABS: Anion Gap 13 mmol/L (10-20); BUN (Urea Nitrogen) 7 mg/dL (8.9-20.6); Calc. Creatinine Clearance 158 mL/min (70-130); Calcium 8.3 mg/dL (7.8-10.44); Carbon Dioxide 29 mmol/L (22-29); Chloride 94 mmol/L (98-107); Estimated GFR-MDRD Greater than 90; Glucose 75 mg/dL (70-105); Sodium 132 mmol/L (136-145)
[2017-06-14 06:11] LABS: Band 1 % (5-11); Hemoglobin 10.7 g/dL (14.0-18.0); Lymphocytes 8 % (21-51); MDiff Complete? YES; Mean Corpuscular Hemoglobin 34.9 pg (27.0-31.0); Mean Corpuscular Volume 99.9 fl (80.0-94.0); Mean Platelet Volume 5.4 fL (7.4-10.4); Monocytes 2 % (0-10); Myelocyte 1 % (0-0); Neutrophil 88 % (42-75); PLT Morphology Comment Appears Increased; Platelet Count 1058 thou/uL (130-400); RBC Distribution Width 13.4 % (11.5-14.5); Red Blood Cell (RBC) Count 3.08 mill/uL (4.70-6.10); White Blood Cell (WBC) Count 22.2 thou/uL (4.8-10.8)
[2017-06-14] MEDS: Amoxicillin/Potassium Clav 875 MG TAB PO SCH (07:52)
[2017-06-14] MEDS: predniSONE 20 MG TAB PO SCH (07:52)
[2017-06-14] MEDS: Famotidine/PF 20 mg/2ml Vial SLOW IVP SCH (07:53)
[2017-06-14] MEDS: Docusate 100 MG CAP PO SCH (07:53)
[2017-06-14] MEDS: Aspirin 325 MG TAB PO SCH (07:53)
[2017-06-14] MEDS: Multivit, Therapeutic 1 TAB PO SCH (07:53)
--- NOTE | 2017-06-14 08:00 | RAD ---
CHEST 1 VIEW: Date: 06/14/17 HISTORY: Chest pain. Chest tubes. Follow-up. COMPARISON: 06/13/17. FINDINGS: Cardiac silhouette is magnified by projection. Left thoracostomy tubes are unchanged in position. Par enchymal scarring and atelectasis throughout the left lung is stable. Infiltrate within the right luis armando g has improved. Bilateral pleural fluid remains. No significant pneumothorax. Left subclavian central venous catheter remains coiled over the left brachiocephalic vein. Old right rib fractures are apparent. IMPRESSION: Slight improved aeration of the right lung. Findings are otherwise stable. POS: [facility]
--- NOTE | 2017-06-14 11:05 | DIS ---
DATE OF ADMISSION: 06/08/2017 DATE OF DISCHARGE: 06/14/2017 PRIMARY CARE PHYSICIAN: None. DISCHARGE DIAGNOSES: 1. Left-sided empyema. 2. Hyponatremia, improving. 3. Abnormal liver function. 4. Thrombocythemia. PROCEDURES DURING THIS HOSPITALIZATION: 1. On 06/08/2017, patient had thoracentesis. 2. On 06/10/2017, patient had left subclavian central line placement as well as left thoracotomy wit h total pulmonary decortication along with placement of chest tube drains. 3. Removal of chest tube drains on 06/14/2017. CONDITION OF PATIENT ON THE DAY OF DISCHARGE: Stable. I assess Mr. Bledsoe on the day of discharge. He denies any chest pain. He denies any shortness of breath. He has cough that is nonproductive. V ital signs are stable. S1 and S2 are heard, regular. Lungs are clear to auscultation bilaterally. DISCHARGE MEDICATIONS: Prednisone 20 mg daily for 5 days, then 10 mg daily for 5 days, tramadol 50 m g every 6 hours as needed, multivitamins 1 tablet daily, and Augmentin 875 mg 2 times a day for 2 wee ks. CONSULTATIONS DURING THIS HOSPITALIZATION: Pulmonology, Dr. Brambila and Cardiovascular Surgery, Dr. Viktoriya Monet. HOSPITAL COURSE: Mr. Bledsoe is a pleasant 51-year-old gentleman who was admitted to [facility] on 06/08/2017 for left-sided empyema. He was started on broad spectrum antibiotics. He was seen by pulmonology service and underwent thoracentesis, which yielded purulent fluid. He w as subsequently seen by Cardiovascular Surgery and underwent left-sided thoracotomy. At the time of this dictation, all cultures are negative. His chest tube drains were removed on 06/14/2017. He had hyponatremia with sodium of 126 on 06/09/2017. It improved to 132 on the day of discharge. Sheyla villanueva also had thrombocythemia, with a platelet count greater than 1000 during this hospitalization. He will need further workup for this if it is not improving. He has been advised to follow up through h is primary care provider's office for the same. He also had abnormal liver function test during this hospitalization. He will need further workup through his primary care provider's office for that as well. On the day of discharge, he has a white count of 22,200, hemoglobin 10.7, platelet count 1058. Sodiu m 132, potassium 4.0, and creatinine 0.56. Many thanks for allowing me to participate in your patient's care. Please feel free to contact me wi th any questions or concerns. DISCHARGE DESTINATION: Home. TOTAL AMOUNT OF TIME SPENT COORDINATING THIS DISCHARGE: 33 minutes.
--- NOTE | 2017-06-14 15:06 | PRG ---
DATE OF SERVICE: 06/14/2017 SUBJECTIVE: This morning, he is awake, alert, and responsive. He is ready to go home. OBJECTIVE: VITAL SIGNS: He is afebrile, blood pressure 120/60, sat 94% on room air, respiration 16, pulse 85. CHEST: Decreased breath sounds, no wheezing. CARDIAC: Normal S1 and S2. No gallops. ABDOMEN: Soft, no masses. LABORATORY DATA: White count today is elevated at 20,000, hemoglobin and hematocrit 10 and 30, plate let count is normal. Electrolytes are normal. Sodium 132. IMPRESSION: Status post left pneumothorax, necrotizing pneumonia, probably anaerobic, status post de cortication, status post thoracentesis. PLAN: The patient is much improved. He will be discharged home today on Augmentin for 3 weeks. Follow up in the office in 2 weeks. He is to refrain from smoking and drinking. Follow up with his primary care physician.
[2017-06-14 15:27] VITALS: BP 149/79; TEMP 97.9
== END 2017-06-14 16:45 | disposition home or self-care (01) | DRG 853 ==
LOC: IMCU/EMU 13:06 → SURG A 06-11 12:45
PROVIDERS: ADMIT Specialist; ATTEND Emergency Medicine
PROC: 0W9B30Z Drainage of Left Pleural Cavity with Drainage Device, Percutaneous Approach (ICD-10-PCS; 2017-06-08)
PROC: 0W993ZX Drainage of Right Pleural Cavity, Percutaneous Approach, Diagnostic (ICD-10-PCS; 2017-06-08)
PROC: 0BCL0ZZ Extirpation of Matter from Left Lung, Open Approach (ICD-10-PCS; principal; 2017-06-10)
PROC: 3E0T3BZ Introduction of Anesthetic Agent into Peripheral Nerves and Plexi, Percutaneous Approach (ICD-10-PCS; 2017-06-10)
PROC: 05H633Z Insertion of Infusion Device into Left Subclavian Vein, Percutaneous Approach (ICD-10-PCS; 2017-06-10)
DX: A41.9 Sepsis, unspecified organism (principal); J96.01 Acute respiratory failure with hypoxia; J86.9 Pyothorax without fistula; J85.0 Gangrene and necrosis of lung; J94.2 Hemothorax; J18.9 Pneumonia, unspecified organism; E87.1 Hypo-osmolality and hyponatremia; R65.20 Severe sepsis without septic shock; I71.4 Abdominal aortic aneurysm, without rupture; J44.9 Chronic obstructive pulmonary disease, unspecified; F17.210 Nicotine dependence, cigarettes, uncomplicated; F10.10 Alcohol abuse, uncomplicated; I10 Essential (primary) hypertension; D47.3 Essential (hemorrhagic) thrombocythemia
CPT/HCPCS: 32554; 36415; 71045; 71250; 80048; 80076; 82150; 82805; 82945; 83615; 83986; 84157; 84478; 85007; 85025; 85027; 85060; 85610; 85730; 86850; 86900; 86901; 87070; 87081; 87116; 87205; 87206; 87430; 87899; 88112; 88305; 89051; 93306; 94640; A4216; J0692; J2001; J2250; J2405; J2704; J2920; J3010; J3411; J3490; J7050; J7506; J7620; S0028

== ENCOUNTER 2017-06-15 15:30 | Inpatient (IN) | payer SELFPAY ==
[2017-06-15] MEDS ORDERED: Furosemide 40 MG/4 ML VIAL ONE (16:24)
[2017-06-15] MEDS ORDERED: Morphine 4 MG/ML Carpuject ONE (17:49)
[2017-06-15] MEDS ORDERED: Ondansetron ODT 4 MG TAB SL PRN (18:50)
[2017-06-15] MEDS ORDERED: Ondansetron HCl/PF 4 MG/2 ML Vial IVP PRN (18:50)
[2017-06-15] MEDS ORDERED: HYDROcodone/Acetaminophen 5/325 mg Tablet PO PRN (18:57)
[2017-06-15 19:48] VITALS: BMI 20.9
[2017-06-15 19:53] LABS: Hemoglobin 10.7 g/dL (14.0-18.0); Mean Corpuscular Hemoglobin 31.5 pg (27.0-31.0); Mean Corpuscular Volume 98.6 fl (80.0-94.0); Mean Platelet Volume 5.4 fL (7.4-10.4); Platelet Count 1117 thou/uL (130-400); RBC Distribution Width 13.9 % (11.5-14.5); White Blood Cell (WBC) Count 24.2 thou/uL (4.8-10.8)
[2017-06-15] MEDS ORDERED: traMADol HCl 50 MG TAB PO PRN (20:01)
[2017-06-15] MEDS ORDERED: Acetaminophen 325 MG TAB PO PRN (20:01)
[2017-06-15] MEDS ORDERED: Senokot 8.6 MG TAB PO PRN (20:01)
[2017-06-15] MEDS: HYDROcodone/Acetaminophen 5/325 mg Tablet PO PRN (20:01)
[2017-06-15] MEDS ORDERED: Guaifenesin DM 100-10/5 ML UDCUP PO PRN (20:01)
[2017-06-15 20:15] LABS: Anisocytosis SLIGHT = 6-15 cells (100X) (0-5/hpf); Band 5 % (5-11); Hypochromia SLIGHT = 6-15 cells (100X) (0-5/hpf); Lymphocytes 6 % (21-51); MDiff Complete? YES; Monocytes 2 % (0-10); Neutrophil 87 % (42-75); PLT Morphology Comment Appears Increased
[2017-06-15] MEDS: Nicotine 21 MG PATCH TOP SCH (20:57)
[2017-06-15] MEDS: Famotidine 20 MG TAB PO SCH (20:57)
[2017-06-15] MEDS: Cefepime 1 GM, Admixture Fee 1 EACH in Sterile Water 10 ML SLOW IVP SCH (20:58)
[2017-06-15] MEDS ORDERED: Amoxicillin/Potassium Clav 500 MG TAB PO SCH (21:00)
[2017-06-15] MEDS ORDERED: Cefepime 1 GM in Sodium Chloride 0.9% 100 ML IVPB SCH (21:00)
--- NOTE | 2017-06-15 21:58 | CON ---
DATE OF CONSULTATION: 06/15/2017 HISTORY OF PRESENT ILLNESS: This is a 51-year-old gentleman recently admitted with H. flu pneumonia complicated by hydropneumothorax and empyema. He underwent a thoracotomy last week by Dr. Monet on t he left with drainage of his empyema. He was noted at that time to have probable abscess in his lung . He was discharged yesterday and to return today complaining of pain and dyspnea. He did not fill his pain medications after discharge and he admits to smoking 3 cigarettes yesterday after arriving h ome. He presented to the [place] [facility] where CT scan was done showing a small hydropneumo thorax with subcutaneous air similar to the chest x-ray done prior to tube removal 2 days ago. His w jameel count is basically the same at about 24,000 and he has had no fever. PAST MEDICAL HISTORY: Includes COPD, history of alcoholism and a new diagnosis of an enlarged ascend ing aorta. PAST SURGICAL HISTORY: Includes lymph node biopsy. 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 PHYSICAL EXAMINATION: GENERAL: He is an alert, cooperative gentleman, in no distress. NECK: No adenopathy. CHEST: He has palpable subcutaneous emphysema along the left anterior chest. He has a dressing in t he left lower chest and a wound in the left posterior chest that is healing nicely with no fluid. LUNGS: Slight expiratory wheezes with good breath sounds bilaterally. ABDOMEN: Soft and nontender. EXTREMITIES: He has significant 2+ edema in both lower extremities with some bullae in his feet and ankle areas. PLAN: At this time, no obvious change in his chest examination and will resume his Augmentin. We wi ll also resume his prednisone. He has been instructed to keep his legs elevated at bed except for ba throom privileges and anticipate the swelling will improve tonight. We will hold off on his Augmenti n at this time due to the possibility that he could have developed these bullae in his legs related t o this drug.
--- NOTE | 2017-06-15 23:21 | HP ---
REASON FOR ADMISSION: Possible recurrence of empyema, lower extremity edema with blistering, mild pneumothorax. HISTORY OF PRESENT ILLNESS: The patient gives history of not getting comfortable at all in any position. He tried to sit, lay down, turn to right and left, and could not get comfortable at all. He states he was in a lot of pain and was short of breath. He was discharged yesterday from the hospital after being hospitalized for left-sided empyema. No fever as such at home. He says his pharmacy closed by the time he reached home after discharge. PAST MEDICAL AND SURGICAL HISTORY: Left chest tube placement for left-sided empyema, there was extremely foul-smelling gas and fluid that emanated from the wound. History of AAA; prior history of hilar lymph node resection on right side for suspicion of TB, which was negative; history of COPD, failure to thrive. PERSONAL HISTORY: The patient states he smokes 1 to 1-1/2 packs daily; in fact , after getting discharge he smoked three cigarettes yesterday. Denies alcohol use or drugs. He lives with brother. FAMILY HISTORY: The patient is not . There are no kids. Mom at the age of 76 years from lung cancer, which had spread to brain and bone. Father of same lung cancer at the age of 72 years. DISCHARGE MEDICATIONS: Augmentin 875 mg p.o. twice daily, [place] p.r.n. for pain , multivitamin 1 tab once daily, prednisone 20 mg daily, and Ultram 50 mg q.6 hours p.r.n. for pain. ALLERGIES: No known drug allergies. REVIEW OF SYSTEMS: The following complete review of systems was negative, unless otherwise mentioned in the HPI or below: Constitutional: Weight loss or gain, ability to conduct usual activities. Skin: Rash, itching. Eyes: Double vision, pain. ENT/Mouth: Nose bleeding, neck stiffness, pain, tenderness. Cardiovascular: Palpitations, dyspnea on exertion, orthopnea. Respiratory: Shortness of breath, wheezing, cough, hemoptysis, fever or night sweats. Gastrointestinal: Poor appetite, abdominal pain, heartburn, nausea, vomiting, constipation, or diarrhea. Genitourinary: Urgency, frequency, dysuria, nocturia. Musculoskeletal: Pain, swelling. Neurologic/Psychiatric: Anxiety, depression. Allergy/Immunologic: Skin rash, bleeding tendency. PHYSICAL EXAMINATION: GENERAL: The patient is a 51-year-old male, who is cachectic and not in any acute distress at present. VITAL SIGNS: Blood pressure 142/86, pulse 90 per minute, respiratory rate 20 per minute, temperature 97.5 degrees Fahrenheit, saturating 96% on room air. NECK: Supple, no elevated JVD. HEENT: Eyes: Extraocular muscles are intact. Pupils are reacting to light. Oral cavity: Mucous membranes are dry. No exudates or congestion. CARDIOVASCULAR SYSTEM: S1, S2 heard. RESPIRATORY SYSTEM: There is scattered rhonchi plus bilateral, wheezes plus 1+ bilateral. ABDOMEN: Soft, no tenderness, rigidity or guarding. EXTREMITIES: There is 2+ peripheral edema with blistering of the skin in both lower extremities. No calf tenderness. VASCULAR SYSTEM: Peripheral pulses 1+ bilateral. No ischemic ulcerations or gangrene. CENTRAL NERVOUS SYSTEM: No gross focal deficits seen. The patient is alert, awake, and oriented well. PSYCHIATRIC: The patient's mood is a bit depressed. Otherwise, no hallucinations or delusions. LABORATORY AND X-RAY FINDINGS: Please note all his labs were done at [facility]. The CBC done here shows a white count of 24, H&H 10 and 33, platelet count is 1117 with 87% neutrophils and 5% bands, MCV is 98. Sodium 127, potassium 4.7 , chloride 89. Serum bicarbonate 26, glucose 92, BUN 6.2, creatinine 0.6, calcium 8.7, total bilirubin 0.7, AST 52, ALT 95, albumin is 2.9. Lactic acid is less than 1.5, CK-MB 15.6, troponin I less than 0.01. BNP was 84. He has had a CT of the chest done, which shows there is cavitation in the left upper lobe peripherally, which communicates with the extrapleural space causing a left -sided loculated pneumothorax. This also appears to be free communication of this loculated pneumothorax with the chest wall soft tissues and the prior chest tube may have been in this location. Area of airspace opacity in the right upper lobe may represent focal infiltrate, small bilateral pleural effusions and adjacent atelectasis were seen. CLINICAL IMPRESSION AND PLAN: The patient will be admitted to medical floor for a possible recurrence of his lung abscess, severe lower extremity edema with blistering. Dr. Casas has evaluated the patient here and has been placed on clindamycin and cefepime. We will continue the same. We will place him on lidocaine patch along with Ultram p.r.n. for pain, he is also on [place]. DuoNebs q.6 hourly, incentive spirometry and continue his prednisone 20 mg daily as before. We will also have daily chest x-rays to see for resolution or worsening of his pneumothorax that's seen on the CAT scan. He will be on Lasix 20 mg IV q.12 hourly for the severe lower extremity edema likely due to hypoalbuminemia. The patient is unkempt and has poor physical hygiene. He might need placement for 2 weeks in view of his deconditioning and current medical issues. Case management consultation will be requested for the same. We will continue to closely monitor him on medical floor. BRYCE
[2017-06-16] MEDS: HYDROcodone/Acetaminophen 5/325 mg Tablet PO PRN ×3 (00:50→09:37)
[2017-06-16] MEDS: Clindamycin/D5W 300 MG/50 ML BAG IVPB SCH ×3 (00:51→14:46)
[2017-06-16] MEDS: Furosemide 40 MG/4 ML VIAL SLOW IVP SCH ×2 (05:17→14:36)
[2017-06-16 05:38] LABS: Anion Gap 12 mmol/L (10-20); BUN (Urea Nitrogen) 10 mg/dL (8.9-20.6); Calc. Creatinine Clearance 113 mL/min (70-130); Carbon Dioxide 27 mmol/L (22-29); Chloride 90 mmol/L (98-107); Estimated GFR-MDRD Greater than 90; Glucose 108 mg/dL (70-105); Potassium 3.3 mmol/L (3.5-5.1); Sodium 126 mmol/L (136-145)
--- NOTE | 2017-06-16 08:30 | RAD ---
SINGLE VIEW OF THE CHEST: COMPARISON: 06/14/17. HISTORY: Empyema. FINDINGS: A single view of the chest shows a normal size cardiomediastinal silhouette. Air is seen along the l eft chest wall. The previously seen chest tubes have been removed. There is a small left apical pne umothorax. A small left pleural effusion is also seen. IMPRESSION: Status post chest tube removal with a small left apical pneumothorax. POS: [facility]
[2017-06-16] MEDS: Cefepime 1 GM, Admixture Fee 1 EACH in Sterile Water 10 ML SLOW IVP SCH (08:45)
[2017-06-16] MEDS: predniSONE 20 MG TAB PO SCH (08:46)
[2017-06-16] MEDS: Famotidine 20 MG TAB PO SCH ×2 (08:47→20:41)
[2017-06-16] MEDS: Multivit, Therapeutic 1 TAB PO SCH (08:48)
[2017-06-16] MEDS: Lidocaine 5% Patch TD SCH (09:00)
[2017-06-16] MEDS ORDERED: FLU VACC QS2017-18 36 mo. & older 0.5 ML SYRINGE IM ONE (09:00)
[2017-06-16] MEDS: Enoxaparin Sodium 40 MG/0.4 ML SYRINGE SC SCH (09:15)
--- NOTE | 2017-06-16 12:26 | PDOC.PN ---
- Subjective Encounter Start Date: 06/16/17 Encounter Start Time: 11:15 Subjective: pain is better, no sob -: has his LE elevated over pillows - Objective Resuscitation Status: Resuscitation Status FULL:Full Resuscitation MAR Reviewed: Yes Vital Signs & Weight: Vital Signs (12 hours) Temp Pulse Resp BP Pulse Ox 06/16/17 11:38 97.8 F 80 20 110/68 95 06/16/17 08:00 97.8 F 86 20 95 06/16/17 07:38 97.8 F 86 20 115/70 95 06/16/17 07:00 93 L 06/16/17 06:57 64 16 93 L 06/16/17 05:00 97.8 F 72 20 101/65 92 L 06/16/17 03:29 94 L 06/16/17 01:51 90 16 93 L 06/16/17 01:00 97.5 F L 83 18 103/62 91 L Weight Weight 126 lb 4 oz Result Diagrams: 06/15/17 19:32 06/16/17 04:33 Phys Exam - Physical Examination HEENT: PERRLA, moist MMs Neck: no JVD, supple Respiratory: no wheezing, no rales Cardiovascular: RRR, no significant murmur Gastrointestinal: soft, no distention, positive bowel sounds Musculoskeletal: pulses present, edema present Neurological: non-focal, moves all 4 limbs Psychiatric: normal affect, A&O x 3 Dx/Plan (1) Pneumonia Code(s): J18.9 - PNEUMONIA, UNSPECIFIED ORGANISM Status: Acute Qualifiers: Pneumonia type: due to unspecified organism (2) Thrombocythemia Status: Chronic (3) COPD (chronic obstructive pulmonary disease) Status: Chronic Qualifiers: COPD type: chronic bronchitis Chronic bronchitis type: unspecified Qualified Code(s): J42 - Unspecified chronic bronchitis (4) HTN (hypertension) Code(s): I10 - ESSENTIAL (PRIMARY) HYPERTENSION Status: Chronic Qualifiers: Hypertension type: essential hypertension Qualified Code(s): I10 - Essential (primary) hypertension (5) Tobacco abuse Code(s): Z72.0 - TOBACCO USE Status: Chronic - Plan pain is better on lidocaine patch, ultram and prn norco -: will place him on scheduled ultram and tylenol -: on cefepime and clindamycin -: cxr this am reviewed -: may switch back to augmentin if ok with * . will need swing bed, medication assistance for discharge plan Review of Systems - Medications/Allergies Allergies/Adverse Reactions: Allergies Allergy/AdvReac Type Severity Reaction Status Date / Time No Known Drug Allergies Allergy Verified 06/08/17 16:02 Medications: Current Medications Acetaminophen (Tylenol) 650 mg PO BID [facility] Albuterol/Ipratropium (Duoneb) 3 ml NEB [id number] [facility] Last Admin: 06/16/17 06:57 Dose: 3 ml Clindamycin Phosphate/Dextrose (Cleocin) 300 mg IVPB Q6HR [facility] Last Admin: 06/16/17 05:15 Dose: 300 mg Enoxaparin Sodium (Lovenox) 40 mg SC 0900 [facility] Last Admin: 06/16/17 09:15 Dose: 40 mg Famotidine (Pepcid) 20 mg PO BID [facility] Last Admin: 06/16/17 08:47 Dose: 20 mg Furosemide (Lasix) 40 mg SLOW IVP 0600,1400 [facility] Last Admin: 06/16/17 05:17 Dose: 40 mg Guaifenesin/Dextromethorphan (Robitussin Dm) 15 ml PO Q4H PRN PRN Reason: Cough Cefepime HCl 1 gm/Miscellaneous Medication 1 each/ Sterile Water 10 mls @ 120 mls/hr SLOW IVP Q12HR [facility] Last Admin: 06/16/17 08:45 Dose: 10 mls Lidocaine (Lidoderm 5% Patch) 1 patch TD DAILY [facility] Last Admin: 06/16/17 09:00 Dose: 1 patch Miscellaneous Medication (Lidocaine Patch Removal) 1 each TOP QPM [facility] Multivitamins (Theragran) 1 tab PO DAILY [facility] Last Admin: 06/16/17 08:48 Dose: 1 tab Nicotine (Nicoderm Patch) 21 mg TOP HS [facility] Last Admin: 06/15/17 20:57 Dose: 21 mg Prednisone (Prednisone) 20 mg PO QAM-WM [facility] Last Admin: 06/16/17 08:46 Dose: 20 mg Senna (Senokot) 2 tab PO HSPRN PRN PRN Reason: Constipation Tramadol HCl (Ultram) 50 mg PO TID [facility]
[2017-06-16] MEDS ORDERED: Potassium Chloride 20 MEQ TAB PO SCH (13:30)
[2017-06-16] MEDS: traMADol HCl 50 MG TAB PO SCH ×2 (14:38→20:18)
[2017-06-16] MEDS: Acetaminophen 325 MG TAB PO SCH (20:17)
[2017-06-16] MEDS: Nicotine 21 MG PATCH TOP SCH (20:17)
[2017-06-16] MEDS: Amoxicillin/Potassium Clav 875 MG TAB PO SCH (20:18)
[2017-06-16] MEDS: Lidocaine Patch Removal TOP SCH (20:38)
--- NOTE | 2017-06-17 00:43 | CON ---
DATE OF CONSULTATION: 06/16/2017 HISTORY OF PRESENT ILLNESS: Mr. Bledsoe is a 51-year-old gentleman who says he got home and had surgical site chest discomfort. Said he could not tolerate the pain. He also was complaining of lower extremity swelling, decided to come back for reevaluation. Says his feet were swollen when he left the hospital. He was discharged on the at in the afternoon and was back in the emergency department in the afternoon the next day. He subsequently was admitted. We were consulted because of a recent hospitalization for parapneumonic effusion with pneumonia. He had a polymicrobial pleural fluid with gram positive cocci in pairs and intracellular gram-variable rods. This would suggest that this may have been an aspiration related to that in my opinion. I reviewed his chest radiograph and believe actually his findings in the left may be slightly improved. He has a tiny apical pneumothorax on the left. I do not see any clear cut evidence for recurrence of an infected pleural space. PAST MEDICAL HISTORY: 1. Remarkable for his recent decortication. 2. History of abdominal aortic aneurysm. 3. History of hilar lymph node resection on the right in the past, worked up for tuberculosis, workup was negative. 4. History of obstructive lung disease. SOCIAL HISTORY: History of a pack and half smoking per day. He started smoking immediately after discharge. He has no history of alcohol or drugs. FAMILY HISTORY: There is no family, both parents of lung cancer. MEDICATIONS: He is on Augmentin, [place], prednisone, and Ultram at discharge. ALLERGIES: No drug allergies. REVIEW OF SYSTEMS: Otherwise negative. He says he feels better. PHYSICAL EXAMINATION: VITAL SIGNS: He is afebrile, heart rate is 80, respiratory rate is 20, oximetry is 94%, and blood pressure 109/69. HEENT: Sclerae is anicteric. Malnourished appearing. He has temporal muscle wasting. NECK: Supple. LUNGS: Remarkable for clear breath sounds. HEART: Regular rhythm. ABDOMEN: Soft and nontender. EXTREMITIES: Without asymmetry. His lower extremities are wrapped on wound care. LABORATORY DATA: White count was 22,000 on the , 24,000 on admission. He has 1,117,000 platelets, 87 segs, 5% bands. IMPRESSION: 1. Recent evacuation of an anaerobic empyema. 2. Pneumonia. 3. Protein calorie malnutrition. 4. Reactive thrombocytosis associated with empyema, which he gradually improved. There is no clear proven benefit treating this with hydroxyurea, although some product safety technical assistant do use the drug in this setting. I do not see anything on his radiograph to suggest a recurrence of an infectious process. He does need to complete his antimicrobial course. He has been given a diuretic and says his feet are already better. I am not sure that anything more than medications given to him at discharge are indicated. I agree with current management. This is a 50-minute consult greater than 50% of the time was spent on the unit coordinating care. BRYCE
[2017-06-17] MEDS: HYDROcodone/Acetaminophen 5/325 mg Tablet PO PRN (05:27)
[2017-06-17] MEDS: Furosemide 40 MG/4 ML VIAL SLOW IVP SCH ×2 (06:00→15:19)
[2017-06-17] MEDS ORDERED: Furosemide 40 MG TAB PO SCH (07:30)
[2017-06-17] MEDS: Enoxaparin Sodium 40 MG/0.4 ML SYRINGE SC SCH (08:23)
[2017-06-17] MEDS: Famotidine 20 MG TAB PO SCH ×2 (08:24→21:22)
[2017-06-17] MEDS: predniSONE 20 MG TAB PO SCH (08:24)
[2017-06-17] MEDS: Acetaminophen 325 MG TAB PO SCH ×2 (08:24→21:21)
[2017-06-17] MEDS: Amoxicillin/Potassium Clav 875 MG TAB PO SCH ×2 (08:25→21:24)
[2017-06-17] MEDS: traMADol HCl 50 MG TAB PO SCH ×3 (08:25→21:22)
[2017-06-17] MEDS: Lidocaine 5% Patch TD SCH (08:25)
[2017-06-17] MEDS: Multivit, Therapeutic 1 TAB PO SCH (08:25)
[2017-06-17 08:34] LABS: Hemoglobin 10.9 g/dL (14.0-18.0); Mean Corpuscular HGB CONC 32.1 g/dL (32.0-36.0); Mean Corpuscular Hemoglobin 32.1 pg (27.0-31.0); Mean Corpuscular Volume 99.9 fl (80.0-94.0); Mean Platelet Volume 5.4 fL (7.4-10.4); Platelet Count 1225 thou/uL (130-400); White Blood Cell (WBC) Count 22.7 thou/uL (4.8-10.8)
[2017-06-17 08:51] LABS: Anion Gap 15 mmol/L (10-20); BUN (Urea Nitrogen) 9 mg/dL (8.9-20.6); Calc. Creatinine Clearance 97 mL/min (70-130); Calcium 8.5 mg/dL (7.8-10.44); Carbon Dioxide 26 mmol/L (22-29); Chloride 91 mmol/L (98-107); Estimated GFR-MDRD Greater than 90; Glucose 85 mg/dL (70-105); Potassium 3.8 mmol/L (3.5-5.1); Sodium 128 mmol/L (136-145)
--- NOTE | 2017-06-17 11:44 | RAD ---
PORTABLE CHEST: HISTORY: Empyema. Followup. COMPARISON: 06/16/17. FINDINGS: Parenchymal opacities in the left mid and lower lung are again noted. Small left peripheral pneumoth orax and left subcutaneous emphysema again noted. Right lung remains clear. IMPRESSION: Left chest findings do not appear significantly changed from yesterday. POS: [facility]
--- NOTE | 2017-06-17 12:05 | PDOC.PN ---
- Subjective Encounter Start Date: 06/17/17 Encounter Start Time: 11:00 Subjective: feels better -: no sob, is amb in room - Objective Resuscitation Status: Resuscitation Status FULL:Full Resuscitation MAR Reviewed: Yes Vital Signs & Weight: Vital Signs (12 hours) Temp Pulse Resp BP Pulse Ox 06/17/17 08:00 97.2 F L 76 18 90 L 06/17/17 07:42 97.2 F L 76 18 114/76 90 L 06/17/17 06:35 87 16 97 06/17/17 02:00 80 16 94 L Weight Admit Weight 126 lb 4 oz Weight 126 lb 4 oz I&O: 06/16/17 06/17/17 06/18/17 06:59 06:59 06:59 Intake Total 180 Balance 180 Result Diagrams: 06/17/17 08:13 06/17/17 08:13 Phys Exam - Physical Examination HEENT: PERRLA, moist MMs Neck: no JVD, supple Respiratory: no wheezing, no rales Cardiovascular: RRR, no significant murmur Gastrointestinal: soft, non-tender, positive bowel sounds Musculoskeletal: no edema, pulses present Neurological: non-focal, moves all 4 limbs Psychiatric: A&O x 3 Dx/Plan (1) Pneumonia Code(s): J18.9 - PNEUMONIA, UNSPECIFIED ORGANISM Status: Suspected Qualifiers: Pneumonia type: due to unspecified organism Comment: old empyema is resolving (2) Thrombocythemia Status: Chronic (3) COPD (chronic obstructive pulmonary disease) Status: Chronic Qualifiers: COPD type: chronic bronchitis Chronic bronchitis type: unspecified Qualified Code(s): J42 - Unspecified chronic bronchitis (4) HTN (hypertension) Code(s): I10 - ESSENTIAL (PRIMARY) HYPERTENSION Status: Chronic Qualifiers: Hypertension type: essential hypertension Qualified Code(s): I10 - Essential (primary) hypertension (5) Tobacco abuse Code(s): Z72.0 - TOBACCO USE Status: Chronic (6) Malnutrition of moderate degree Code(s): E44.0 - MODERATE PROTEIN-CALORIE MALNUTRITION Status: Chronic - Plan is on augmentin -: oral prednisone -: on lidocaine tts, ultram tid and tylenol bid -: dc plan in am -: ensure 1 can tid * . Review of Systems - Medications/Allergies Allergies/Adverse Reactions: Allergies Allergy/AdvReac Type Severity Reaction Status Date / Time No Known Drug Allergies Allergy Verified 06/08/17 16:02 Medications: Current Medications Acetaminophen (Tylenol) 650 mg PO BID [facility] Last Admin: 06/17/17 08:24 Dose: 650 mg Hydrocodone Bitart/Acetaminophen ([place] 5/325) 1 tab PO Q4H PRN PRN Reason: pain >3 Last Admin: 06/17/17 05:27 Dose: 1 tab Albuterol/Ipratropium (Duoneb) 3 ml NEB [id number] [facility] Last Admin: 06/17/17 06:35 Dose: 3 ml Amoxicillin/Clavulanate Potassium (Augmentin) 875 mg PO Q12HR [facility] Last Admin: 06/17/17 08:25 Dose: 875 mg Enoxaparin Sodium (Lovenox) 40 mg SC 0900 [facility] Last Admin: 06/17/17 08:23 Dose: 40 mg Famotidine (Pepcid) 20 mg PO BID [facility] Last Admin: 06/17/17 08:24 Dose: 20 mg Furosemide (Lasix) 40 mg SLOW IVP 0600,1400 [facility] Last Admin: 06/17/17 06:00 Dose: Not Given Guaifenesin/Dextromethorphan (Robitussin Dm) 15 ml PO Q4H PRN PRN Reason: Cough Lidocaine (Lidoderm 5% Patch) 1 patch TD DAILY [facility] Last Admin: 06/17/17 08:25 Dose: 1 patch Miscellaneous Medication (Lidocaine Patch Removal) 1 each TOP QPM [facility] Last Admin: 06/16/17 20:38 Dose: 1 each Multivitamins (Theragran) 1 tab PO DAILY [facility] Last Admin: 06/17/17 08:25 Dose: 1 tab Nicotine (Nicoderm Patch) 21 mg TOP HS [facility] Last Admin: 06/16/17 20:17 Dose: 21 mg Potassium Chloride (Klor-Con) 20 meq PO QAM-WM [facility] Last Admin: 06/17/17 08:25 Dose: 20 meq Prednisone (Prednisone) 20 mg PO QAM-WM [facility] Last Admin: 06/17/17 08:24 Dose: 20 mg Senna (Senokot) 2 tab PO HSPRN PRN PRN Reason: Constipation Tramadol HCl (Ultram) 50 mg PO TID [facility] Last Admin: 06/17/17 08:25 Dose: 50 mg
--- NOTE | 2017-06-17 12:54 | PRG ---
DATE OF SERVICE: 06/17/2017 Mr. Bledsoe was readmitted to the hospital. I asked him exactly what the issue was. He said he started having difficulty breathing. He went back and tried to smoke. PHYSICAL EXAMINATION: VITAL SIGNS: His sats are 90% on room air, pulse is 80, temperature 98. LUNGS: He has got crepitus on the left side with crackles, right lung is unremarkable. CARDIAC: Normal S1, S2. LABORATORY DATA: White count 20,000, H&H 10 and 30, platelet count is elevated. Sodium 128. 2+ ankle edema. IMPRESSION: Necrotizing pneumonia, probably anerobic infection. PLAN: Will discharge home on Augmentin for 2 weeks, prednisone. His diuretics probably can be discontinued. His swelling is more than likely from his . Continue antibiotics, continue nutrition, PT. Hopefully, he can be discharged home in the next several days. Avoid excessive pain medicine. Once again, he is to refrain from smoking and drinking. BRYCE
[2017-06-17] MEDS: Nicotine 21 MG PATCH TOP SCH (21:25)
[2017-06-17] MEDS: Lidocaine Patch Removal TOP SCH (21:26)
[2017-06-18] MEDS: HYDROcodone/Acetaminophen 5/325 mg Tablet PO PRN ×2 (02:09→10:40)
[2017-06-18] MEDS ORDERED: Milk Of Magnesia 30 ML UDCUP PO PRN (02:30)
[2017-06-18 05:05] LABS: Anion Gap 12 mmol/L (10-20); BUN (Urea Nitrogen) 11 mg/dL (8.9-20.6); Calc. Creatinine Clearance 106 mL/min (70-130); Calcium 8.1 mg/dL (7.8-10.44); Carbon Dioxide 29 mmol/L (22-29); Chloride 91 mmol/L (98-107); Estimated GFR-MDRD Greater than 90; Glucose 85 mg/dL (70-105); Potassium 3.4 mmol/L (3.5-5.1); Sodium 129 mmol/L (136-145)
[2017-06-18] MEDS: Furosemide 40 MG/4 ML VIAL SLOW IVP SCH (06:01)
[2017-06-18] MEDS: predniSONE 20 MG TAB PO SCH (08:04)
[2017-06-18] MEDS: Famotidine 20 MG TAB PO SCH (08:04)
[2017-06-18] MEDS: Amoxicillin/Potassium Clav 875 MG TAB PO SCH (08:04)
[2017-06-18] MEDS: Multivit, Therapeutic 1 TAB PO SCH (08:04)
[2017-06-18] MEDS: traMADol HCl 50 MG TAB PO SCH (08:04)
[2017-06-18] MEDS: Acetaminophen 325 MG TAB PO SCH (08:04)
[2017-06-18] MEDS: Enoxaparin Sodium 40 MG/0.4 ML SYRINGE SC SCH (08:06)
[2017-06-18] MEDS: Lidocaine 5% Patch TD SCH (08:07)
--- NOTE | 2017-06-18 10:46 | PRG ---
DATE OF SERVICE: 06/18/2017 This morning he is awake, alert, responsive. Denies any pain or discomfort. PHYSICAL EXAMINATION: VITAL SIGNS: Sats are 91%, 93% on 1 liter, temperature 97, pulse 76, respirations 18. CHEST: No wheezing or crackles. CARDIAC: Normal S1-S2. No gallops. ABDOMEN: Soft, no masses. Sodium 129. IMPRESSION: 1. Left-sided prior pneumothorax status post decortication. 2. Bilateral lung abscesses, probably anaerobic infection. Small pneumothorax. PLAN: He will be discharged home on Augmentin and prednisone a few days ago. He already has a presc ription. Refrain from smoking and drinking. He will be seen in the office in 2 weeks for a chest x- ray.
[2017-06-18 11:52] VITALS: BP 126/82; TEMP 97.3
[2017-06-18] MEDS ORDERED: Prevnar 13-Val Conj/PF 0.5 ML SYRINGE IM ONE (12:45)
--- NOTE | 2017-06-18 13:40 | PDOC.PN ---
- Subjective Encounter Start Date: 06/18/17 Encounter Start Time: 07:00 Subjective: is amb in hallway, feels better -: pain is controlled well on current meds - Objective Resuscitation Status: Resuscitation Status FULL:Full Resuscitation MAR Reviewed: Yes Vital Signs & Weight: Vital Signs (12 hours) Temp Pulse Resp BP BP Pulse Ox 06/18/17 11:00 97.3 F L 69 16 126/82 94 L 06/18/17 08:17 97.6 F 76 18 93 L 06/18/17 07:40 76 18 96 06/18/17 07:31 97.6 F 80 16 107/91 H 93 L 06/18/17 04:00 98.0 F 66 20 148/48 H 98 Weight Admit Weight 126 lb 4 oz Weight 126 lb 4 oz I&O: 06/17/17 06/18/17 06/19/17 06:59 06:59 06:59 Intake Total 600 Balance 600 Result Diagrams: 06/17/17 08:13 06/18/17 04:05 Phys Exam - Physical Examination HEENT: PERRLA, moist MMs Neck: no JVD, supple Respiratory: no wheezing, no rales Cardiovascular: RRR, no significant murmur Gastrointestinal: soft, non-tender, positive bowel sounds Musculoskeletal: no edema, pulses present Neurological: non-focal, moves all 4 limbs Psychiatric: normal affect, A&O x 3 Dx/Plan (1) Pneumonia Code(s): J18.9 - PNEUMONIA, UNSPECIFIED ORGANISM Status: Suspected Qualifiers: Pneumonia type: due to unspecified organism Comment: old empyema is resolving (2) Thrombocythemia Status: Chronic (3) COPD (chronic obstructive pulmonary disease) Status: Chronic Qualifiers: COPD type: chronic bronchitis Chronic bronchitis type: unspecified Qualified Code(s): J42 - Unspecified chronic bronchitis (4) HTN (hypertension) Code(s): I10 - ESSENTIAL (PRIMARY) HYPERTENSION Status: Chronic Qualifiers: Hypertension type: essential hypertension Qualified Code(s): I10 - Essential (primary) hypertension (5) Tobacco abuse Code(s): Z72.0 - TOBACCO USE Status: Chronic (6) Malnutrition of moderate degree Code(s): E44.0 - MODERATE PROTEIN-CALORIE MALNUTRITION Status: Chronic - Plan edema of LE is resolving -: dc pt home -: CM for help with meds for dc -: to f/u with in 2 weeks * .
--- NOTE | 2017-06-18 23:28 | DIS ---
DATE OF ADMISSION: 06/15/2017 DATE OF DISCHARGE: 06/18/2017 DISCHARGE DISPOSITION: To home. PRIMARY DISCHARGE DIAGNOSIS: Intractable pain with recent thoracotomy for empyema. SECONDARY DISCHARGE DIAGNOSES: Hypertension, chronic obstructive pulmonary disease, chronic thromboc ytopenia, tobacco abuse and malnutrition. PROCEDURES DONE DURING HOSPITALIZATION: The patient has had serial chest x-rays done, which showed s table small left apical pneumothorax. Discharge white count of 22, hemoglobin and hematocrit 10 and 34, platelet count 1225. Discharge sodium of 129, BUN 11 and creatinine 0.6. DISCHARGE MEDICATIONS: Augmentin 875 mg p.o. twice daily for another 12 days, Tylenol 650 mg p.o. tw ice daily, Ultram 50 mg p.o. 3 times daily, prednisone 5 mg p.o. daily for another 6 days and to disc ontinue after that, K-Dur 20 mEq p.o. on alternate days, Lasix 40 mg p.o. daily, DuoNebs q.6 hourly, lidocaine 5% transdermal patch daily and multivitamin 1 tab once daily. ALLERGIES: No known drug allergies. INPATIENT CONSULTS: Dr. Casas for Cardiothoracic Surgery and Dr. Brambila for Pulmonology. BRIEF COURSE DURING HOSPITALIZATION: The patient initially got readmitted after being discharged for intractable pain. He was recently hospitalized for empyema and has had thoracotomy with evacuation. The patient did not fill his prescriptions for the discharge medications and had to be readmitted f or the same. There was also initial suspicion of possible pneumothorax, for which he has had serial chest x-rays done, which has remained stable and is very small on the left apical area. He was evalu ated by Dr. Casas for Cardiothoracic Surgery and Dr. Brambila for Pulmonology. His pain has been well co ntrolled on scheduled Tylenol twice daily and Ultram 3 times daily along with lidocaine patch. The p atient has been advised to continue incentive spirometry and DuoNebs as well. He is being cleared fo r discharge today by Pulmonology and Cardiothoracic Surgery. A case management consultation was requ ested for help with medications. He has been strongly advised to continue above medications and foll ow up with Dr. Brambila in 2 weeks with a follow up chest x-ray. Please note there was no new pneumonia or new empyema findings during his readmission here. Please see a [id number] documentation on [employer] for the day of discharge.
== END 2017-06-18 16:11 | disposition home or self-care (01) | DRG 199 ==
LOC: ERS 15:30 → T4-A 16:15
PROVIDERS: ADMIT Internal Medicine; ATTEND Internal Medicine
DX: J93.9 Pneumothorax, unspecified (principal); J85.0 Gangrene and necrosis of lung; J86.9 Pyothorax without fistula; D69.6 Thrombocytopenia, unspecified; R64 Cachexia; E44.0 Moderate protein-calorie malnutrition; E88.09 Other disorders of plasma-protein metabolism, not elsewhere classified; E87.1 Hypo-osmolality and hyponatremia; F17.210 Nicotine dependence, cigarettes, uncomplicated; Z68.21 Body mass index [BMI] 21.0-21.9, adult; I10 Essential (primary) hypertension; J42 Unspecified chronic bronchitis; F41.9 Anxiety disorder, unspecified
CPT/HCPCS: 36415; 71045; 80048; 85025; 90471; 90682; 94640; 96374; 96375; 99406; A4216; G0008; J0692; J1650; J1940; J2270; J3490; J7506; J7620; Q2036

== ENCOUNTER 2017-07-10 13:55 | Outpatient (CLI) | payer SELFPAY ==
--- NOTE | 2017-07-10 14:25 | RAD ---
PA AND LATERAL CHEST: History: Dyspnea. Comparison: 06-17-17 FINDINGS: Heart size is within normal limits. Parenchymal lung changes in the left mid and lower lung aguirre ap pear chronic in nature. They are slightly improved as compared to the prior exam. Subcutaneous emphys darcy has resolved. IMPRESSION: Chronic lung change. Parenchymal changes in the left midlung field and pleural and parenchymal change s in the left base show improvement as compared to the prior exam. POS: [facility]
== END 2017-07-10 13:56 | disposition home or self-care (01) ==
LOC: RAD 13:55
PROVIDERS: ATTEND Thoracic Surgery (Cardiothoracic Vascular Surgery)
DX: J86.9 Pyothorax without fistula (principal); J98.4 Other disorders of lung
CPT/HCPCS: 71046

== ENCOUNTER 2017-10-10 12:40 | Outpatient (CLI) | payer OTHER ==
--- NOTE | 2017-10-10 13:46 | RAD ---
TWO VIEWS OF THE CHEST: COMPARISON: 07/10/17. HISTORY: Dyspnea. FINDINGS: Two views of the hest show a normal size cardiomediastinal silhouette with atherosclerotic calcificat ions in the aorta. Scarring is seen in the left lung. There is no evidence of consolidation, mass, or pleural effusion. IMPRESSION: No evidence of acute cardiopulmonary disease. POS: [facility]
== END 2017-10-10 12:41 | disposition home or self-care (01) ==
LOC: RAD 12:40
PROVIDERS: ATTEND Internal Medicine Pulmonary Disease
DX: R06.00 Dyspnea, unspecified (principal)
CPT/HCPCS: 71046